=== PATIENT | male | born 1950 | race Caucasian/White ===

== ENCOUNTER 2019-08-20 16:10 | Outpatient (CLI) | payer MEDICARE, SELFPAY ==
[2019-08-20 16:34] LABS: Hematocrit 41.3 % (42.0-52.0); Hemoglobin 13.6 g/dL (14.0-18.0); Mean Corpuscular HGB Conc 32.9 g/dl (32-36); Mean Corpuscular Hemoglobin 30.9 pg (26-34); Mean Corpuscular Volume 93.9 fl (80-100); Mean Platelet Volume 9.3 fl (7.4-10.4); Platelet Count Result 151 k/mm3 (150-375); White Blood Count 6.9 K/mm3 (4.5-10.0)
[2019-08-20 16:49] LABS: Alanine Aminotransferase 29 U/L (4-50); Albumin Level 4.2 g/dL (3.5-5.1); Alkaline Phosphatase 105 U/L (38-126); Aspartate Amino Transferase 38 U/L (17-59); Bilirubin,Total 0.8 mg/dL (0.2-1.3); Blood Urea Nitrogen 37 mg/dL (9-20); Calcium 9.3 mg/dL (8.4-10.2); Carbon Dioxide 25 mmol/L (22-30); Chloride 101 mmol/L (98-107); Estimated Glomerular Filt Rate 50; Glucose 99 mg/dL (75-110); Potassium 4.3 mmol/L (3.4-5.0); Sodium 136 mmol/L (137-145)
== END 2019-08-20 16:11 | disposition home or self-care (01) ==
LOC: ANHLAB 16:12
PROVIDERS: PCP Family Medicine; Visit Provider Physician Assistant
DX: R53.83 Other fatigue (principal); J02.9 Acute pharyngitis, unspecified
CPT/HCPCS: 36415; 80053; 85027

== ENCOUNTER 2020-04-05 23:30 | Inpatient (IN) | payer MEDICARE, SELFPAY ==
--- NOTE | ~2020-04-05 | MR_ITS ---
EXAMINATION: MR brain/brain stem wo/w con DATE: 04/06/2020 10:41 INDICATION: Vertigo. TECHNIQUE: Magnetic resonance imaging (MRI) of the brain and brainstem was performed without and with 20 mL MultiHance intravenous contrast. Sequences included sagittal and axial T1-weighted FSE, axial diffusion-weighted FS EPI, axial T2*-weighted GRE, axial T2-weighted FLAIR Propeller, and axial T2-we ighted Propeller. Postcontrast sequences included axial, sagittal, and coronal T1-weighted FSE. Appar ent diffusion coefficient (ADC) maps were created. COMPARISON: Brain MRI 12/18/2018, head CT 04/06/2020 FINDINGS: There are old infarcts involving the cerebellum bilaterally. There is an old infarct in rig ht occipital lobe. There is an old infarct involving the left basal ganglia and left frontal lobe cor john radiata. There is an old lacunar infarct in the right lentiform nucleus. There are scattered area s of nonspecific increased T2-weighted signal intensity in the cerebral white matter. There is no int racranial hemorrhage, acute infarction, or abnormal intracranial mass lesion. The pituitary is normal in size. There are surgical changes of the sella. There is ex vacuo dilatation of body of left later al ventricle. The orbits are normal. There is mucosal thickening in the paranasal sinuses. IMPRESSION: 1. Old infarcts involving the cerebellum, right occipital lobe, bilateral basal ganglia, and left fro ntal lobe dugan radiata. 2. Moderate nonspecific cerebral white matter disease, which likely represents chronic small vessel i schemic disease. Reviewed, dictated and finalized at location A. IMPRESSION: 1. Old infarcts involving the cerebellum, right occipital lobe, bilateral basal ganglia, and left frontal lobe dugan radiata. 2. Moderate nonspecific cerebral white matter disease, which likely represents chronic small vessel ischemic disease.
--- NOTE | ~2020-04-05 | CT_ITS ---
EXAMINATION: CT brain wo con DATE: 04/06/2020 02:55 INDICATION: Vertigo TECHNIQUE: Computed tomography (CT) of the head was performed without intravenous contrast. The mA wa s adjusted according to patient size. Iterative reconstruction technique was employed. Exam dose: 60 5.33 mGy-cm total exam DLP. COMPARISON: 12/18/2018 MRI brain 12/17/2018 CT brain FINDINGS: Old infarcts of the left cerebellar hemisphere, right occipital lobe and left dugan radiat a. Chronic lacunar infarct in region of anterior limb of right internal capsule. Chronic basal gangli a lacunar infarcts are suggested. Severe atherosclerotic calcification of the vertebral, basilar, internal carotid arteries as well as as middle cerebral artery calcifications. No intracranial hemorrhage or recent cerebrovascular accident is evident. No midline shift or mass ef fect. No subdural or epidural hematoma. There is soft tissue mass involving the sphenoid sinus and sella turcica with associated destruction of the floor of the sella turcica. MRI examination is recommended.. No fracture or bone destruction of the cranial vault is noted otherwise.. IMPRESSION: Soft tissue mass of the sella turcica and sphenoid sinus area, with associated destructi on of the floor of the sella turcica; MRI evaluation is recommended. Extensive cerebral atherosclerotic calcification Chronic infarcts of the left cerebellum, right occipital lobe, left dugan radiata, basal ganglia, an terior limb of right internal capsule Reviewed, dictated and finalized at Location A. Reviewed, dictated and finalized at location A. IMPRESSION: Soft tissue mass of the sella turcica and sphenoid sinus area, wit h associated destruction of the floor of the sella turcica; MRI evaluation is r ecommended. Extensive cerebral atherosclerotic calcification Chronic infarcts of the left cerebellum, right occipital lobe, left dugan radi jacque, basal ganglia, anterior limb of right internal capsule
--- NOTE | ~2020-04-05 | US_ITS ---
EXAMINATION: US carotid duplex BI DATE: 04/08/2020 14:38 INDICATION: Vertigo. Syncope. TECHNIQUE: Grayscale, color Doppler, and pulsed Doppler images of the cervical carotid arteries were obtained. The degree of vessel stenosis is placed in one of the following categories: normal, <50%, 5 0-69%, >=70% but less than near-occlusion, near-occlusion, or total occlusion. Note that percent sten osis relative to normal distal artery lumen diameter is indirectly measured from velocity measurement s as described by Erik, et al. Radiology 2003; 229:340-346. Notes: Normal: Peak systolic velocity <125 centimeters/sec and no plaque <50%. Peak systolic velocity <125 ( EDV <40; ICA/CCA PSV ratio <2.0; used these factors only a tandem lesions or low cardiac output or co ntralateral disease) 50-69 %: PSV 125-230 (EDV 40-100; ratio 2-4) >= 70% but less than near occlusion: PSV greater than 230 (EDV > 100; ratio> 4.0) Near Occlusion: PSV that is variable; markedly narrowed lumen Occlusion: Absent flow on color/spectral Doppler and no lumen on torres scale. COMPARISON: 12/28/2018. FINDINGS: RIGHT: The right common carotid artery (CCA) peak systolic velocity (PSV) is 77 cm/s. The right internal car otid artery (ICA) PSV is 53 cm/s. The right ICA end-diastolic velocity (EDV) is 10 cm/s. The right IC A/CCA PSV ratio is 0.7. The external carotid artery (ECA) PSV is 69 cm/s. There is antegrade flow in the right vertebral artery. LEFT: The left CCA PSV is 59 cm/s. The left ICA PSV is 45 cm/s. The left ICA EDV is 11 cm/s. The left ICA/C CA PSV ratio is 0.8. The ECA PSV is 67 cm/s. There is antegrade flow in the left vertebral artery. IMPRESSION: 1. Less than 50% stenosis in the right internal carotid artery by sonographic criteria. 2. Less than 50% stenosis in the left internal carotid artery by sonographic criteria. Reviewed, dictated and finalized at location A. IMPRESSION: 1. Less than 50% stenosis in the right internal carotid artery by sonographic c tad. 2. Less than 50% stenosis in the left internal carotid artery by sonographic cr toya.
--- NOTE | ~2020-04-05 | XR_ITS ---
XR chest 1V DATE: 04/05/2020 23:59 INDICATION: Bradycardia, sweating, dizziness, nausea and vomiting. History of chronic atrial fibrilla tion, coronary artery disease. TECHNIQUE: AP chest COMPARISON: 06/28/2015 PA and lateral chest FINDINGS: Status post sternotomy. Multiple broken sternal wire sutures. Cardiomegaly. Aortic ectasia, calcification and tortuosity. There is pulmonary vascular redistribution which suggests mild pulmonary venous hypertension. Mild in filtrate or atelectasis at the lung bases. Diffuse osteopenia. IMPRESSION: Cardiomegaly, pulmonary vascular redistribution, suggesting mild congestive changes Mild bibasilar infiltrate and/atelectasis Reviewed, dictated and finalized at location A. IMPRESSION: Cardiomegaly, pulmonary vascular redistribution, suggesting mild co ngestive changes Mild bibasilar infiltrate and/atelectasis
[2020-04-05 23:30] VITALS: BP 221/114; PULSE 53; RESP 21; TEMP 36.4; O2SAT 99
--- NOTE | 2020-04-05 23:40 | ECG_ITS ---
Measurements Intervals [place] Rate: 50 P: -16 OK: 201 QRS: -5 QRSD: 171 T: 55 QT: 537 QTc: 490 Interpretive Statements SINUS BRADYCARDIA BORDERLINE AV CONDUCTION DELAY RIGHT BUNDLE BRANCH BLOCK ABNORMAL ECG Electronically Signed On 04-06-2020 8:02:57 CDT by Dick Carlton D.O.
--- NOTE | 2020-04-05 23:47 | ED.DIZZY ---
HPI - Dizziness General Chief Complaint: Dizziness Stated Complaint: n/v dizziness Time Seen by Provider: 04/05/20 23:37 Source: patient and EMS Limitations: no limitations History of Present Illness HPI Narrative: Patient is 69 years old white male, obese to the up from sitting position and suddenly developed dizziness, everything is spinning, associated with nausea, vomiting, diaphoresis. EMT reported that patient heart rate was in the 40s, atropine and Zofran were given. On arrival to the emergency room patient denying any pain, fever, chills, chest pain, shortness of breath, back pain or abdominal pain. Currently complaining of that everything is pains if he turning his head to either side. Patient had similar symptoms secondary to vertigo Related Data Home Medications Medication Instructions Recorded Confirmed aspirin 81 mg PO DAILY 04/06/20 cabergoline 0.25 mg PO 2XW 04/06/20 calcium citrate malate-vit D3 tablet PO 04/06/20 cholecalciferol (vitamin D3) 50 mcg PO DAILY 04/06/20 [Vitamin D3] ferrous gluconate 236 mg PO DAILY 04/06/20 finasteride 5 mg PO DAILY 04/06/20 lisinopril 10 mg PO DAILY 04/06/20 mecobalamin (vitamin B12) 1,000 mcg SUBLINGUAL DAILY 04/06/20 sertraline 150 mg PO DAILY 04/06/20 Allergies Allergy/AdvReac Type Severity Reaction Status Date / Time No Known Allergies Allergy Verified 04/06/20 00:53 Review of Systems Review of Systems: Narrative: CONSTITUTIONAL: Denies fever, chills, or sweats. EYES: Denies visual changes, redness, or discharge. ENT: Denies rhinorrhea, congestion, sore throat, or otalgia. CARDIOVASCULAR: Denies chest pain, palpitations, or edema. RESPIRATORY: Denies cough or dyspnea. GASTROINTESTINAL: Denies abdominal pain, nausea, vomiting, or diarrhea. GENITOURINARY: Denies dysuria or hematuria. SKIN: Denies rash or itching. MUSCULOSKELETAL: Denies back pain, joint pain, or myalgia. NEUROLOGIC: Denies headache, numbness, or weakness. PSYCHIATRIC: Denies anxiety or depression. [facility] Past Medical History Medical History BPH (benign prostatic hyperplasia) CAD (coronary artery disease) Chronic a-fib CKD (chronic kidney disease) Depression History of [place] (myocardial infarction) History of pituitary adenoma HLD (hyperlipidemia) HTN (hypertension) JULIANA (obstructive sleep apnea) Osteoarthritis SSS (sick sinus syndrome) Type 2 diabetes mellitus with proliferative diabetic retinopathy without macular edema, bilateral Surgical History Surgical History History of coronary artery bypass graft Family History Family History Other Family history of congenital heart disease Social History Social History Smoking status: Never smoker Alcohol intake: never Substance use: never Gender identity (if verbalized by the patient): Male Exam Narrative: Exam Narrative: General appearance: Well-developed, well-nourished Skin: Pale skin Head: Normocephalic, nontraumatic Eyes: Clear conjunctiva ENT: Oropharynx normal, ears normal, nose normal Neck: Supple, nontender Chest and respiratory: Airway patent, no respiratory distress, no accessory muscle use Heart: Bradycardia, regular rate Abdomen: Soft, nontender, no organomegaly, quiet bowel sounds Vascular: Normal peripheral pulses, normal capillary refill. Musculoskeletal: Normal range of motion, nontender back Neurologic: Alert and oriented ?3, MACHINE DESIGNER is normal as tested, no gross motor deficit Course Course Emergency Course: Improvin
--- NOTE | 2020-04-05 23:49 | PC.NURSE ---
Patient being taken to radiology.
[2020-04-05 23:57] LABS: Basophils Absolute Auto 0.1 K/mm3 (0.0-0.1); Basophils Percent Auto 0.9 % (0.2-1.2); Eosinophils Absolute Auto 0.3 K/mm3 (0-0.3); Eosinophils Percent Auto 4.4 % (0-4.4); Hemoglobin 13.4 g/dL (14.0-18.0); Immature Granulocyte Absolute 0.01 K/mm3 (0.00-0.031); Immature Granulocyte Percent A 0.1 % (0-0.5); Lymphocytes Absolute Auto 2.99 K/mm3 (0.9-3.2); Lymphocytes Percent Auto 42.8 % (18.3-44.2); Mean Corpuscular HGB Conc 33.5 g/dl (32-36); Mean Corpuscular Hemoglobin 30.7 pg (26-34); Mean Corpuscular Volume 91.5 fl (80-100); Mean Platelet Volume 9.3 fl (7.4-10.4); Monocytes Absolute Auto 0.5 K/mm3 (0.1-0.6); Monocytes Percent Auto 6.4 % (2.6-8.5); Neutrophils Absolute Auto 3.2 K/mm3 (1.3-6.7); Neutrophils Percent Auto 45.4 % (45.5-73.1); Platelet Count Result 174 k/mm3 (150-375); Red Blood Count 4.37 M/mm3 (4.6-6.20); Red Cell Distribution Width 13.1 % (11.5-14.5)
[2020-04-05] MEDS: ONDANSETRON INJ 4 MG/2 ML VIAL IV PUSH (23:59)
[2020-04-05] MEDS: diazePAM INJ (*CRX) 10 MG/2 ML SYRINGE 5 MG IV PUSH (23:59)
[2020-04-05] MEDS: MECLIZINE HCL 25 MG TABLET PO (23:59)
[2020-04-06] VITALS (14 sets, daily range): BP systolic 115–201; BP diastolic 78–112; PULSE 43–54; RESP 12–20; TEMP 36.1–37; O2SAT 91–99; BMI 44.6
[2020-04-06 00:07] LABS: INR 1.1; Prothrombin Time 13.8 Seconds (11.1-14.7)
[2020-04-06 00:08] LABS: Partial Thromboplastin Time 27.1 SECONDS (22.3-36.8)
--- NOTE | 2020-04-06 00:10 | PC.NURSE ---
Patient oxygen sat decreased to 80% after given the IV valuim. Patient still awake but drowsy. Patient placed on 3L of oxygen via NC. ERP notifed. Patient stating he feels much better but sleepy.
[2020-04-06 00:11] LABS: Alanine Aminotransferase 23 U/L (4-50); Albumin Level 4.4 g/dL (3.5-5.1); Alkaline Phosphatase 100 U/L (38-126); Anion Gap 7 mmol/L (8-16); Aspartate Amino Transferase 29 U/L (17-59); Bilirubin,Total 0.4 mg/dL (0.2-1.3); Blood Urea Nitrogen 25 mg/dL (9-20); Calcium 9.5 mg/dL (8.4-10.2); Carbon Dioxide 26 mmol/L (22-30); Chloride 103 mmol/L (98-107); Estimated CRCL calculation 80 ml/min; Estimated Glomerular Filt Rate > 60; Glucose 124 mg/dL (75-110); Potassium 3.7 mmol/L (3.4-5.0); Sodium 136 mmol/L (137-145)
[2020-04-06 00:21] LABS: Troponin I < 0.012 ng/mL (0.000-0.034)
--- NOTE | 2020-04-06 00:49 | PC.NURSE ---
Patient decreased from 3L to 1L via NC. Patient maintaining O2 sat of 97%-100%. Patient's in room at bedside.
[2020-04-06] MEDS: cloNIDine HCL 0.1 MG TABLET PO ×2 (01:35→02:03)
--- NOTE | 2020-04-06 01:39 | PC.NURSE ---
Patient taken off oxygen. Patient maintaining sat at 97% on RA.
--- NOTE | 2020-04-06 02:16 | PC.NURSE ---
Patient attempted ambulation assessment, patient stated he was not dizzy upon sitting on the side of the bed or standing. Patient became dizzy when taking a step. Patient assisted back onto stretcher. Patient did not tolerate ambulation well, ERP notified.
--- NOTE | 2020-04-06 03:48 | ADMGEN ---
This patient, Kieran Phelan, was admitted to Medical Room 348-01. Patient/family oriented to hospital policies and general routines including ID bracelet, bed and alarms, visiting hours, pain management, procedures, bathroom and other care routines, personal items, smoking policy, room service/diet, and visiting hours. Valuables list has been completed. Information on how to activate the Rapid Response Team has been discussed. Patient/Family are encouraged to report perceived risks to care and to ask questions if they do not understand what they are told or what they should do.
[2020-04-06 03:52] LABS: Glucose Point of Care 120 (65-105)
[2020-04-06 03:58] LABS: Troponin I < 0.012 ng/mL (0.000-0.034)
[2020-04-06 05:58] LABS: Troponin I < 0.012 ng/mL (0.000-0.034)
[2020-04-06 08:13] LABS: Glucose Point of Care 105 (65-105)
[2020-04-06] MEDS: lisinopriL 10 MG TABLET PO (10:54)
[2020-04-06] MEDS: CLOPIDOGREL BISULFATE 75 MG TABLET PO (10:55)
[2020-04-06] MEDS: ISOSORBIDE MONONITRATE 30 MG TAB.ER.24H PO (10:55)
[2020-04-06] MEDS: ATORVASTATIN 40 MG TABLET PO (10:56)
[2020-04-06] MEDS: BUMETANIDE 0.5 MG TABLET 0.25 MG PO (10:56)
[2020-04-06] MEDS: FERROUS GLUCONATE 324 MG TABLET PO (10:57)
[2020-04-06] MEDS: FINASTERIDE 5 MG TABLET PO (10:57)
[2020-04-06] MEDS: ASPIRIN 81 MG ENTERIC TABLET PO (10:58)
[2020-04-06] MEDS: SERTRALINE HCL 50 MG TABLET 150 MG PO (10:58)
[2020-04-06] MEDS: TAMSULOSIN HCL 0.4 MG CAPSULE PO (10:58)
[2020-04-06] MEDS: CHOLECALCIFEROL 1,000 UNITS TABLET 2000 UNITS PO (10:59)
[2020-04-06] MEDS: CYANOCOBALAMIN 1,000 MCG TABLET 1000 MCG PO (10:59)
[2020-04-06 11:48] LABS: Glucose Point of Care 145 (65-105)
--- NOTE | 2020-04-06 13:30 | PM.IMHP ---
H&P: HPI History of Present Illness Date/Time: 04/06/20 13:30 with past medical history 9) History of pituitary adenoma, acromegaly, pituitary gigantism, gigantism, type 2 diabetes, coronary artery disease, patient was brought to the emergency department by EMS with complaint of nausea or vomiting and dizziness his heart rate was in 40s and patient was given atropine and Zofran which did help, patient was also given atropine in the emergency depart to bring is heart rate up and this also helps improve his nausea or vomiting and dizziness, also upon arrival patient blood pressure was extremely elevated 211/114 and patient was given clonidine which did help with blood pressure, Patient is seen by his speech language pathologist assistant and concerned about bradycardia and suspec conduction system disease with wide right bundle-branch block and first-degree AV block. to further evaluate patient will have cardiac echo, as instructed by speech language pathologist assistant will avoid AV node blocking agents including clonidine, patient has significant endocrinology abnormality with acromegaly and pituitary gigantism for which patient is seen by process coordinator however he not the process coordinator in over 6 months and has not taken his medications because Medicaid does not pay for the medications, currently patient heart rate is is low 50 clinically stable denies any complaint of chest pain shortness of breath dizziness nausea or vomiting, patient has been seen by Cardiology will consult further recommendation. Chief complaint: Vertigo, uncontrolled hypertension Narrative: Kieran Phelan is a 69 year old male Review of Systems Review of Systems: All systems reviewed & are unremarkable except as noted in HPI and below PMFSH Past Medical History Medical History BPH (benign prostatic hyperplasia) CAD (coronary artery disease) Chronic a-fib CKD (chronic kidney disease) Depression History of [place] (myocardial infarction) History of pituitary adenoma HLD (hyperlipidemia) HTN (hypertension) JULIANA (obstructive sleep apnea) Osteoarthritis SSS (sick sinus syndrome) Type 2 diabetes mellitus with proliferative diabetic retinopathy without macular edema, bilateral Surgical History Surgical History History of coronary artery bypass graft Family History Family History Other Family history of congenital heart disease Social History Social History Smoking status: Never smoker Alcohol intake: never Substance use: never Gender identity (if verbalized by the patient): Male Spiritual care concerns: No Meds Home Medications and Allergies Home Medications Medication Instructions Recorded Confirmed Type atorvastatin 40 mg tablet 40 mg PO DAILY #90 tablet 07/18/19 04/06/20 Rx bumetanide 0.5 mg tablet 0.25 mg PO DAILY #45 tablet 08/28/19 04/06/20 Rx tamsulosin 0.4 mg capsule 0.4 mg PO DAILY #90 cap 09/25/19 04/06/20 Rx potassium chloride 20 mEq 40 meq PO DAILY #180 tablet 10/01/19 04/06/20 Rx tablet,extended release clopidogrel 75 mg tablet 75 mg PO DAILY #90 tablet 02/29/20 04/06/20 Rx isosorbide mononitrate 30 mg 30 mg PO DAILY #90 tablet 02/29/20 04/06/20 Rx tablet,extended release 24 hr aspirin 81 mg PO DAILY 04/06/20 04/06/20 History cabergoline 0.25 mg PO 2XW 04/06/20 04/06/20 History calcium citrate malate-vit D3 4 tablet PO DAILY 04/06/20 04/06/20 History cholecalciferol (vitamin D3) 50 mcg PO DAILY 04/06/20 04/06/20 History [Vitamin D3] ferrous gluconate 236 mg PO DAILY 04/06/20 04/06/20 History finasteride 5 mg PO DAILY 04/06/20 04/06/20 History lisinopril 10 mg PO DAILY 04/06/20 04/06/20 History mecobalamin (vitamin B12) 1,000 mcg SUBLINGUAL DAILY 04/06/20 04/06/20 History sertraline 150 mg PO DAILY 04/06/20 04/06/20 History Allergies Allergy/AdvR
--- NOTE | 2020-04-06 13:56 | PM.CNCAR ---
Assessment and Plan Assessment and plan (1) Sinus bradycardia: Code(s): R00.1 - Bradycardia, unspecified Status: Acute Assessment and Plan: stable sinus bradycardia heart rate ranging 40s to 50s. Underlying right bundle-branch block. Bradycardia is more pronounced in previously noted but not entirely new. No evidence of prolonged pauses and or high-grade AV block. Right bundle branch block is chronic. Patient does not have a known history of atrial fibrillation as documented elsewhere. Mild bradycardia may be contributing to his symptom complex I believe it is is more likely a consequence of his clinical status / presentation as opposed to the primary explanation. It would not be explanation for marked hypertension. His bradycardia may be a function of excessive vagal tone and/or intracerebral process/mass. MRI pending. Continue telemetry. Avoid AV henna blocking agents including clonidine. While I do not believe patient meets criteria for pacemaker implantation I cannot entirely exclude this is a possibility depending upon results of his ongoing workup. Nonetheless, clearly has underlying conduction system disease with wide right bundle-branch block and first-degree AV block. (2) Hypertension, uncontrolled: Code(s): I10 - Essential (primary) hypertension Status: Acute Assessment and Plan: severely elevated to 21/114 at presentation now much improved. Patient feels much better but still somewhat dizzy despite persistent moderate bradycardia. My primary concern is with inter cerebral contribution from tumor/mass, then uncontrolled hypertension complicated by bradycardia. Continue medical management. Avoid Hypotension. (3) Dizziness: Code(s): R42 - Dizziness and giddiness Status: Acute Assessment and Plan: Improved but not completely resolved with reduction of blood pressure. Bradycardia may be contributing but I am more concerned with regarding CT head results and pending MRI brain. (4) CAD (coronary artery disease): Code(s): I25.10 - Atherosclerotic heart disease of zuni coronary artery without angina pectoris Status: Acute Assessment and Plan: stable, no acute issue. Continue antiplatelet therapy. If he remains on dual antiplatelet therapy given his complicated anatomy. no anginal symptoms reported. Enzymes negative thus far. (5) Acromegaly and gigantism: Code(s): E22.0 - Acromegaly and pituitary gigantism Status: Acute Assessment and Plan: As above. Defer to primary service. Neurology consultation. (6) History of pituitary adenoma: Code(s): Z86.018 - Personal history of other benign neoplasm Status: Acute Assessment and Plan: As above. (7) JULIANA (obstructive sleep apnea): Code(s): G47.33 - Obstructive sleep apnea (adult) (pediatric) Status: Acute Assessment and Plan: patient reports compliance with BiPAP at home. He will require this in the hospital. 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 History of Present Illness History of Present Illness Consult date/time: Date of service: 04/06/20 13:56 this is a cardiology consultation at the [facility] Dr. [facility] dizziness and bradycardia. Requesting physician: Ernst Short MD Consult reason: Other ( Bradycardia, vertigo) Reason For Visit: Vertigo, uncontrolled hypertension Narrative: Mr. Phelan is a very pleasant 69-year-old gentleman well known to me whom I follow as an outpatient with past medical history significant for acromegaly, obstructive sleep apnea on CPAP, CABG 2004 with known occlusion of 2 saphenous vein
[2020-04-06 16:40] LABS: Glucose Point of Care 78 (65-105)
[2020-04-06] MEDS: ACETAMINOPHEN 500 MG TABLET 1000 MG PO (18:27)
[2020-04-06 22:17] LABS: Glucose Point of Care 97 (65-105)
[2020-04-07] VITALS (11 sets, daily range): BP systolic 131–210; BP diastolic 75–98; PULSE 43–62; RESP 14–20; TEMP 35.6–36.8; O2SAT 97–98
--- NOTE | 2020-04-07 | ECHO_ITS ---
Patient Info Name: Kieran Phelan Age: 69 years : 1950 Gender: Male Ht: 67 in Wt: 285 lbs BSA: 2.54 m2 BP: 165 / 80 mmHg Heart Rhythm: Sinus Rhythm Technical Quality: Poor Exam Date: 04/07/2020 1:42 PM Exam Location: [facility] Patient Status: Inpatient Admit Date: 04/07/2020 Staff Ordering Physician: Ernst Short MD Crimper Operator: Adriana Prince RDCS Attending Provider: Cristy Gruber DO Exam Type: CA echo dop color flow w con Study Info Indications R00.1 - Bradycardia, unspecified Complete two-dimensional, color flow and Doppler transthoracic echocardiogram is performed with contrast to opacify the left ventricle and to improve the deliniation of the left ventricle endocardial borders. Contrast/Agitated Saline Contrast/Ag. Saline: Definity Amount: 1.00 ml Administered By: Navjot Amato RN Existing IV Access: Yes IV Access Condition: patent with no signs of infiltration Reason for Poor Study: patient body habitus Summary 1. Left ventricular systolic function is normal, estimated at 65-70%. 2. There is moderate concentric increased left ventricular wall thickness. 3. Definity contrast injected to enhance visualization. 4. Left atrial chamber dimension is mildly enlarged. 5. There is mild aortic valve sclerosis. 6. Compared to examination 2019 the inferior basal segment seems to contract normally at this time. Left Ventricle Left ventricular chamber dimension is normal. Left ventricular systolic function is normal, estimated at 65-70%. There is moderate concentric increased left ventricular wall thickness. The left ventricular diastolic function is grade I diastolic dysfunction. Definity contrast injected to enhance visualization. Right Ventricle Right ventricular chamber dimension is normal. Left Atria Left atrial chamber dimension is mildly enlarged. Right Atria Right atrial chamber dimension is normal. Aortic Valve The aortic valve is trileaflet. There is mild aortic valve sclerosis. Pulmonic Valve The pulmonic valve is not well visualized. Mitral Valve The mitral valve has normal leaflets. The mitral valve annulus is mildly calcified. Tricuspid Valve The tricuspid valve leaflets are normal. Pericardium/Pleural The pericardium appears normal. Aorta The aortic root size at the sinus of Valsalva is normal. Left Ventricular Outflow Tract Name Value Normal LVOT 2D LVOT Diameter 1.99 cm LVOT Doppler LVOT Peak Gradient 5 mmHg LVOT Mean Gradient 3 mmHg LVOT VTI 29.85 cm LVOT VTI/AV VTI Ratio 1.06 LVOT Stroke Volume 92.36 ml LVOT CO 5.41 l/min LVOT CI 2.13 L/min/m2 Pulmonic Valve Name Value Normal RVOT Doppler ---
[2020-04-07 05:47] LABS: Anion Gap 6 mmol/L (8-16); Blood Urea Nitrogen 24 mg/dL (9-20); Calcium 9.4 mg/dL (8.4-10.2); Carbon Dioxide 28 mmol/L (22-30); Chloride 103 mmol/L (98-107); Estimated CRCL calculation 80 ml/min; Estimated Glomerular Filt Rate > 60; Glucose 96 mg/dL (75-110); Potassium 4.1 mmol/L (3.4-5.0); Sodium 137 mmol/L (137-145)
[2020-04-07] MEDS: hydrALAZINE HCL 20 MG/ML VIAL 10 MG IV PUSH (06:36)
[2020-04-07] MEDS: CHOLECALCIFEROL 1,000 UNITS TABLET 2000 UNITS PO (08:08)
[2020-04-07] MEDS: ASPIRIN 81 MG ENTERIC TABLET PO (08:08)
[2020-04-07] MEDS: BUMETANIDE 0.5 MG TABLET 0.25 MG PO (08:08)
[2020-04-07] MEDS: ATORVASTATIN 40 MG TABLET PO (08:08)
[2020-04-07] MEDS: ISOSORBIDE MONONITRATE 30 MG TAB.ER.24H PO (08:09)
[2020-04-07] MEDS: SERTRALINE HCL 50 MG TABLET 150 MG PO (08:09)
[2020-04-07] MEDS: CLOPIDOGREL BISULFATE 75 MG TABLET PO (08:09)
[2020-04-07] MEDS: lisinopriL 10 MG TABLET PO ×2 (08:09→20:22)
[2020-04-07] MEDS: TAMSULOSIN HCL 0.4 MG CAPSULE PO (08:09)
[2020-04-07] MEDS: CYANOCOBALAMIN 1,000 MCG TABLET 1000 MCG PO (08:09)
[2020-04-07] MEDS: FERROUS GLUCONATE 324 MG TABLET PO (08:09)
[2020-04-07] MEDS: FINASTERIDE 5 MG TABLET PO (08:09)
[2020-04-07] MEDS: ACETAMINOPHEN 500 MG TABLET 1000 MG PO (09:40)
--- NOTE | 2020-04-07 11:22 | PM.PNCARD ---
Progress Note: A&P Assessment and Plan (1) Sinus bradycardia: Code(s): R00.1 - Bradycardia, unspecified Status: Acute Assessment and Plan: stable sinus bradycardia heart rate ranging 40s to 50s. Underlying right bundle-branch block. Bradycardia is more pronounced in previously noted but not entirely new. No evidence of prolonged pauses and or high-grade AV block. Right bundle branch block is chronic. Patient does not have a known history of atrial fibrillation as documented elsewhere. I do not think his bradycardia is contributing significantly to his dizziness Continue telemetry. Avoid AV henna blocking agents including clonidine. While I do not believe patient meets criteria for pacemaker implantation I cannot entirely exclude this is a possibility depending upon results of his ongoing workup. Nonetheless, clearly has underlying conduction system disease with wide right bundle-branch block and first-degree AV block. (2) Hypertension, uncontrolled: Code(s): I10 - Essential (primary) hypertension Status: Acute Assessment and Plan: severely elevated to 21/114 at presentation now much improved. Patient feels much better but still somewhat dizzy despite persistent moderate bradycardia. My primary concern is with inter cerebral contribution from tumor/mass, will increase his lisinopril to 10 mg p.o. b.i.d. (3) Dizziness: Code(s): R42 - Dizziness and giddiness Status: Acute Assessment and Plan: Improved but not completely resolved with reduction of blood pressure. Bradycardia may be contributing but I am more concerned with regarding CT head results and pending MRI brain. (4) CAD (coronary artery disease): Code(s): I25.10 - Atherosclerotic heart disease of [place] coronary artery without angina pectoris Status: Acute Assessment and Plan: stable, no acute issue. Continue antiplatelet therapy. If he remains on dual antiplatelet therapy given his complicated anatomy. no anginal symptoms reported. Enzymes negative thus far. (5) Acromegaly and gigantism: Code(s): E22.0 - Acromegaly and pituitary gigantism Status: Acute Assessment and Plan: As above. Defer to primary service. Neurology consultation. (6) History of pituitary adenoma: Code(s): Z86.018 - Personal history of other benign neoplasm Status: Acute Assessment and Plan: As above. (7) JULIANA (obstructive sleep apnea): Code(s): G47.33 - Obstructive sleep apnea (adult) (pediatric) Status: Acute Assessment and Plan: patient reports compliance with BiPAP at home. He will require this in the hospital. 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 Subjective Date/time seen: 04/07/20 11:22 Interval history: 69-year-old with dizziness and low heart rate Date of service 04/07/2020: Heart rate is normal. Dizziness has essentially resolved. I do not think that his heart rate has anything to do with his dizziness. Still has high blood pressure. No chest pain or shortness of breath Review of Systems Review of Systems: All systems reviewed & are unremarkable except as noted in HPI and below Constitutional: Constitutional: Reports as per HPI, Reports no additional constitutional complaints, Denies chills and Reports fatigue Eyes: Eyes: Reports as per HPI and Reports no additional eye complaints ENT: Reports system reviewed and no additional complaints, except as documented, Reports as per HPI, Denies Normal hearing present, Denies epistaxis, Denies nasal congestion and Denies tinnitus Cardiovascular: Cardiovascular: Reports as per HPI, Reports no additional cardiovascular complaints, Denies
[2020-04-07] MEDS: PERFLUTREN LIPID MICROSPHERES 1.5 ML VIAL DILUTED TO 10 ML TOTAL VOLUME IV PUSH (14:19)
--- NOTE | 2020-04-07 18:31 | PM.IMPN ---
Progress Note: A&P Assessment and Plan (1) Acromegaly and gigantism: Code(s): E22.0 - Acromegaly and pituitary gigantism Status: Acute Assessment and Plan: 04/07/20 18:31 with past medical history 9) History of pituitary adenoma, acromegaly, pituitary gigantism, gigantism, type 2 diabetes, coronary artery disease, patient was brought to the emergency department by EMS with complaint of nausea or vomiting and dizziness his heart rate was in 40s and patient was given atropine and Zofran which did help, patient was also given atropine in the emergency depart to bring is heart rate up and this also helps improve his nausea or vomiting and dizziness, also upon arrival patient blood pressure was extremely elevated 211/114 and patient was given clonidine which did help with blood pressure, Patient is seen by his landscape artist and concerned about bradycardia and suspec conduction system disease with wide right bundle-branch block and first-degree AV block. to further evaluate patient will have cardiac echo, as instructed by landscape artist will avoid AV node blocking agents including clonidine, patient has significant endocrinology abnormality with acromegaly and pituitary gigantism for which patient is seen by slide fasteners inspector however he not the slide fasteners inspector in over 6 months and has not taken his medications because Medicaid does not pay for the medications, currently patient heart rate is is low 50 clinically stable denies any complaint of chest pain shortness of breath dizziness nausea or vomiting, patient has been seen by Cardiology will consult further recommendation. today patient was seen by cardioloigst and he remains clinically stable, denies any CP, or dizziness, denies any abdominla pain or nuasea, patient had cardiac echo which was essentially normal, will monitor patient overnight and reassess tomorrow, patient does need to follow-up with his slide fasteners inspector at the [facility] meanwhile will consult neurologist for further recommendation. (2) Hypertension, uncontrolled: Code(s): I10 - Essential (primary) hypertension Status: Acute Assessment and Plan: patient with extremely elevated blood pressure in the emergency department patient was given clonidine which has improved his blood pressure will continue home regimen and monitor. (3) Vertigo: Code(s): R42 - Dizziness and giddiness Status: Acute Assessment and Plan: patient with History of pituitary adenoma, acromegaly pending MRI result patient may benefit going to [facility] further evaluation (4) Chronic a-fib: Code(s): I48.20 - Chronic atrial fibrillation, unspecified Status: Acute Assessment and Plan: currently rate is controlled and stable (5) Type 2 diabetes mellitus with proliferative diabetic retinopathy without macular edema, bilateral: Code(s): E11.3593 - Type 2 diabetes mellitus with proliferative diabetic retinopathy without macular edema, bilateral Status: Acute Assessment and Plan: will resume home medication and monitor. Subjective Date/time seen: 04/07/20 18:31 with past medical history 9) History of pituitary adenoma, acromegaly, pituitary gigantism, gigantism, type 2 diabetes, coronary artery disease, patient was brought to the emergency department by EMS with complaint of nausea or vomiting and dizziness his heart rate was in 40s and patient was given atropine and Zofran which did help, patient was also given atropine in the emergency depart to bring is heart rate up and this also helps improve his nausea or vomiting and dizziness, also upon arrival patient blood pressure was extremely elevated 211/114 and patient was given clonidine which did help with blood pressure, Patient is seen by his landscape artist and concerned about bradycardia and suspec conduction system disease with wide right bundle-branch block and first-degree AV block. to further evaluate patient renato
[2020-04-08] VITALS (8 sets, daily range): BP systolic 126–156; BP diastolic 76–87; PULSE 51–87; RESP 16; TEMP 36.3–37.1; O2SAT 94–98
[2020-04-08 05:40] LABS: Anion Gap 4 mmol/L (8-16); Blood Urea Nitrogen 23 mg/dL (9-20); Calcium 9.8 mg/dL (8.4-10.2); Carbon Dioxide 29 mmol/L (22-30); Chloride 103 mmol/L (98-107); Estimated CRCL calculation 80 ml/min; Estimated Glomerular Filt Rate > 60; Glucose 89 mg/dL (75-110); Potassium 3.7 mmol/L (3.4-5.0); Sodium 136 mmol/L (137-145)
[2020-04-08] MEDS: POTASSIUM CHLORIDE 20 MEQ TABLET 40 MEQ PO (09:07)
[2020-04-08] MEDS: CHOLECALCIFEROL 1,000 UNITS TABLET 2000 UNITS PO (09:08)
[2020-04-08] MEDS: SERTRALINE HCL 50 MG TABLET 150 MG PO (09:08)
[2020-04-08] MEDS: CLOPIDOGREL BISULFATE 75 MG TABLET PO (09:08)
[2020-04-08] MEDS: ISOSORBIDE MONONITRATE 30 MG TAB.ER.24H PO (09:09)
[2020-04-08] MEDS: CYANOCOBALAMIN 1,000 MCG TABLET 1000 MCG PO (09:09)
[2020-04-08] MEDS: ASPIRIN 81 MG ENTERIC TABLET PO (09:09)
[2020-04-08] MEDS: TAMSULOSIN HCL 0.4 MG CAPSULE PO (09:09)
[2020-04-08] MEDS: FINASTERIDE 5 MG TABLET PO (09:10)
[2020-04-08] MEDS: lisinopriL 10 MG TABLET PO (09:11)
[2020-04-08] MEDS: BUMETANIDE 0.5 MG TABLET 0.25 MG PO (09:12)
[2020-04-08] MEDS: FERROUS GLUCONATE 324 MG TABLET PO (09:27)
--- NOTE | 2020-04-08 09:43 | PM.PNCARD ---
Progress Note: A&P Assessment and Plan (1) Sinus bradycardia: Code(s): R00.1 - Bradycardia, unspecified Status: Acute Assessment and Plan: stable sinus bradycardia heart rate ranging 40s to 50s. Underlying right bundle-branch block. Bradycardia is more pronounced in previously noted but not entirely new. No evidence of prolonged pauses and or high-grade AV block. Right bundle branch block is chronic. Patient does not have a known history of atrial fibrillation as documented elsewhere. I do not think his bradycardia is contributing significantly to his dizziness Continue telemetry. Avoid AV henna blocking agents including clonidine. While I do not believe patient meets criteria for pacemaker implantation I cannot entirely exclude this is a possibility depending upon results of his ongoing workup. Nonetheless, clearly has underlying conduction system disease with wide right bundle-branch block and first-degree AV block. (2) Hypertension, uncontrolled: Code(s): I10 - Essential (primary) hypertension Status: Acute Assessment and Plan: severely elevated to 21/114 at presentation now much improved. Patient feels much better but still somewhat dizzy despite persistent moderate bradycardia. My primary concern is with inter cerebral contribution from tumor/mass, (3) Dizziness: Code(s): R42 - Dizziness and giddiness Status: Acute Assessment and Plan: Improved but not completely resolved with reduction of blood pressure. Bradycardia may be contributing but I am more concerned with regarding CT head results and pending MRI brain. Will replace his potassium 40 mEq p.o. x1 (4) CAD (coronary artery disease): Code(s): I25.10 - Atherosclerotic heart disease of [place] coronary artery without angina pectoris Status: Acute Assessment and Plan: stable, no acute issue. Continue antiplatelet therapy. If he remains on dual antiplatelet therapy given his complicated anatomy. no anginal symptoms reported. Enzymes negative thus far. (5) Acromegaly and gigantism: Code(s): E22.0 - Acromegaly and pituitary gigantism Status: Acute Assessment and Plan: As above. Defer to primary service. Neurology consultation. (6) History of pituitary adenoma: Code(s): Z86.018 - Personal history of other benign neoplasm Status: Acute Assessment and Plan: As above. (7) JULIANA (obstructive sleep apnea): Code(s): G47.33 - Obstructive sleep apnea (adult) (pediatric) Status: Acute Assessment and Plan: patient reports compliance with BiPAP at home. He will require this in the hospital. 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 Subjective Date/time seen: 04/08/20 09:43 Interval history: 69-year-old with dizziness and low heart rate Date of service 04/08/2020: Heart rate is normal. Dizziness has resolved . I do not think that his heart rate has anything to do with his dizziness. Still has high blood pressure. No chest pain or shortness of breath Review of Systems Review of Systems: All systems reviewed & are unremarkable except as noted in HPI and below Constitutional: Constitutional: Reports as per HPI, Reports no additional constitutional complaints, Denies chills and Reports fatigue Eyes: Eyes: Reports as per HPI and Reports no additional eye complaints ENT: Reports system reviewed and no additional complaints, except as documented, Reports as per HPI, Denies Normal hearing present, Denies epistaxis, Denies nasal congestion and Denies tinnitus Cardiovascular: Cardiovascular: Reports as per HPI, Reports no additional cardiovascular complaints, Denies chest pain, Report
[2020-04-08] MEDS: ATORVASTATIN 40 MG TABLET PO (10:22)
--- NOTE | 2020-04-08 13:53 | WPDNEURCNPN ---
Assessment and Plan Assessment and plan (1) Sinus bradycardia: Code(s): R00.1 - Bradycardia, unspecified Status: Acute (2) Dizziness: Code(s): R42 - Dizziness and giddiness Status: Acute (3) Hypertension, uncontrolled: Code(s): I10 - Essential (primary) hypertension Status: Acute (4) Vertigo: Code(s): R42 - Dizziness and giddiness Status: Acute (5) Acromegaly and gigantism: Code(s): E22.0 - Acromegaly and pituitary gigantism Status: Acute (6) Fatigue: Code(s): R53.83 - Other fatigue Status: Acute (7) JULIANA (obstructive sleep apnea): Code(s): G47.33 - Obstructive sleep apnea (adult) (pediatric) Status: Acute (8) History of pituitary adenoma: Code(s): Z86.018 - Personal history of other benign neoplasm Status: Acute (9) CAD (coronary artery disease): Code(s): I25.10 - Atherosclerotic heart disease of [place] coronary artery without angina pectoris Status: Acute (10) CKD (chronic kidney disease): Code(s): N18.9 - Chronic kidney disease, unspecified Status: Acute (11) HLD (hyperlipidemia): Code(s): E78.5 - Hyperlipidemia, unspecified Status: Acute (12) HTN (hypertension): Code(s): I10 - Essential (primary) hypertension Status: Acute (13) BPH (benign prostatic hyperplasia): Code(s): N40.0 - Benign prostatic hyperplasia without lower urinary tract symptoms Status: Acute (14) Type 2 diabetes mellitus with proliferative diabetic retinopathy without macular edema, bilateral: Code(s): E11.3593 - Type 2 diabetes mellitus with proliferative diabetic retinopathy without macular edema, bilateral Status: Acute (15) Lumbar spondylosis: Code(s): M47.816 - Spondylosis without myelopathy or radiculopathy, lumbar region Status: Acute (16) Osteoarthritis of spine with radiculopathy, lumbar region: Code(s): M47.26 - Other spondylosis with radiculopathy, lumbar region Status: Acute Additional Plan I discussed with him the etiology of his which sounds like a near syncope without any loss of consciousness and the different possibilities according to his statement he was doing fairly decent when he was taking the medication from the punch out crew member which he was not able to and had stopped it he also tells me that he had not told his punch out crew member about these spells he has had and I strongly suggest to him that he should call him today or tomorrow discussed with the case with him I think it will be appropriate to see his previous MRI and if his punch out crew member feels that I need to follow him as a neurologist I will be happy to however on the previous MRI will be helpful to see in the light of the old strokes seen in over MRI all the other hand there is no trouble seen at the pituitary level but there is evidence of surgery around the [place] level For completeness ex at have asked for a carotid Doppler study and if that is negative the patient can be discharged with the anti-platelet therapy and follow-up with the punch out crew member and if need be I will be more than happy to I also instructed him about the driving and should be extraordinary careful if he thinks that the spell is going to happen however does have never happened while he has been driving Consult date: 04/08/20 Time Seen: 12:45 HPI: Kieran Phelan is a 69 year old male Who is left-handed and was admitted because of what he describes near passing out spell which has not resulted in the complete loss of his consciousness 1 of them happened while he was in the charge will little nausea queasy feeling in his stomach and almost near passing out however never did lose consciousness there was no tongue biting there was no urinary incontinence and he was essentially back to his usual self he was admitted with diagnosis of vertigo with a history of having had pituitary surgery for acromegaly and pituitary
--- NOTE | 2020-04-08 16:22 | PM.DS ---
DS: Admitting Diagnosis Admitting Diagnosis Admitting Diagnosis: Vertigo, uncontrolled hypertension DS: Discharge Diagnosis Discharge Diagnosis (1) Acromegaly and gigantism: Code(s): E22.0 - Acromegaly and pituitary gigantism Status: Acute Assessment and Plan: 04/07/20 18:31 with past medical history 9) History of pituitary adenoma, acromegaly, pituitary gigantism, gigantism, type 2 diabetes, coronary artery disease, patient was brought to the emergency department by EMS with complaint of nausea or vomiting and dizziness his heart rate was in 40s and patient was given atropine and Zofran which did help, patient was also given atropine in the emergency depart to bring is heart rate up and this also helps improve his nausea or vomiting and dizziness, also upon arrival patient blood pressure was extremely elevated 211/114 and patient was given clonidine which did help with blood pressure, Patient is seen by his travel services professional and concerned about bradycardia and suspec conduction system disease with wide right bundle-branch block and first-degree AV block. to further evaluate patient will have cardiac echo, as instructed by travel services professional will avoid AV node blocking agents including clonidine, patient has significant endocrinology abnormality with acromegaly and pituitary gigantism for which patient is seen by paramedical aide however he not the paramedical aide in over 6 months and has not taken his medications because Medicaid does not pay for the medications, currently patient heart rate is is low 50 clinically stable denies any complaint of chest pain shortness of breath dizziness nausea or vomiting, patient has been seen by Cardiology will consult further recommendation. today patient was seen by cardioloigst and he remains clinically stable, denies any CP, or dizziness, denies any abdominla pain or nuasea, patient had cardiac echo which was essentially normal, will monitor patient overnight and reassess tomorrow, patient does need to follow-up with his paramedical aide at the [facility] meanwhile will consult neurologist for further recommendation. (2) Hypertension, uncontrolled: Code(s): I10 - Essential (primary) hypertension Status: Acute Assessment and Plan: patient with extremely elevated blood pressure in the emergency department patient was given clonidine which has improved his blood pressure will continue home regimen and monitor. (3) Vertigo: Code(s): R42 - Dizziness and giddiness Status: Acute Assessment and Plan: patient with History of pituitary adenoma, acromegaly pending MRI result patient may benefit going to [facility] further evaluation (4) Chronic a-fib: Code(s): I48.20 - Chronic atrial fibrillation, unspecified Status: Acute Assessment and Plan: currently rate is controlled and stable (5) Type 2 diabetes mellitus with proliferative diabetic retinopathy without macular edema, bilateral: Code(s): E11.3593 - Type 2 diabetes mellitus with proliferative diabetic retinopathy without macular edema, bilateral Status: Acute Assessment and Plan: will resume home medication and monitor. DS: Summary Hospital Course Reason for hospitalization: History of Present Illness Date/Time: 04/06/20 13:30 with past medical history 9) History of pituitary adenoma, acromegaly, pituitary gigantism, gigantism, type 2 diabetes, coronary artery disease, patient was brought to the emergency department by EMS with complaint of nausea or vomiting and dizziness his heart rate was in 40s and patient was given atropine and Zofran which did help, patient was also given atropine in the emergency depart to bring is heart rate up and this also helps improve his nausea or vomiting and dizziness, also upon arrival patient blood pressure was extremely elevated 211/114 and patient was given clonidine which did help with blood pressure, Patient is seen by his
== END 2020-04-08 18:09 | disposition home or self-care (01) | DRG 310 ==
LOC: ANHED 04-06 02:15 → ANH3MED 04-06 02:30
PROVIDERS: Admitting Provider Internal Medicine; Emergency Provider Emergency Medicine; PCP Family Medicine; Visit Provider Family Medicine
DX: R00.1 Bradycardia, unspecified (principal); E11.3593 Type 2 diabetes mellitus with proliferative diabetic retinopathy without macular edema, bilateral; Z28.21 Immunization not carried out because of patient refusal; R42 Dizziness and giddiness; E11.22 Type 2 diabetes mellitus with diabetic chronic kidney disease; I12.9 Hypertensive chronic kidney disease with stage 1 through stage 4 chronic kidney disease, or unspecified chronic kidney disease; N18.9 Chronic kidney disease, unspecified; I48.20 Chronic atrial fibrillation, unspecified; I45.10 Unspecified right bundle-branch block; I25.10 Atherosclerotic heart disease of native coronary artery without angina pectoris; I25.2 Old myocardial infarction; N40.0 Benign prostatic hyperplasia without lower urinary tract symptoms; E78.5 Hyperlipidemia, unspecified; G47.33 Obstructive sleep apnea (adult) (pediatric); E22.0 Acromegaly and pituitary gigantism; M47.26 Other spondylosis with radiculopathy, lumbar region; Z79.82 Long term (current) use of aspirin; Z79.899 Other long term (current) drug therapy; Z86.018 Personal history of other benign neoplasm; Z95.1 Presence of aortocoronary bypass graft
CPT/HCPCS: 36415; 70450; 70553; 71045; 80048; 80053; 84484; 85025; 85610; 85730; 93005; 93880; 96374; 96375; 99285; A9270; A9577; C8929; G0378; J0360; J2405; J3360; Q9957

== ENCOUNTER 2020-04-17 12:48 | Outpatient (CLI) | payer MEDICARE, SELFPAY | END 2020-04-17 12:49 | disposition home or self-care (01) | LOC: ANHAUDIO 12:50 | PROVIDERS: PCP Family Medicine; Visit Provider Family Medicine | DX: H90.3 Sensorineural hearing loss, bilateral (principal) | CPT/HCPCS: 92557; 92567 ==

== ENCOUNTER 2020-11-03 14:46 | Emergency (ER) | payer MEDICARE, SELFPAY ==
--- NOTE | 2020-11-03 14:48 | ED.GENADULT ---
HPI - General Adult General Chief complaint: Wound/Laceration Stated complaint: rt arm laceration Time Seen by Provider: 11/03/20 14:48 Source: patient Mode of arrival: ambulatory Limitations: no limitations History of Present Illness HPI narrative: 70-year-old male patient presents to the [facility] with complaints of right arm laceration. Patient states that he was trimming some trees on a hill and fell forward lacerating his right arm on a tree limb. Patient unknown of when his last tetanus shot was. Patient does have history of diabetes and is on blood thinners. Patient also reports a scratch to the right side of the cheek and right side of the neck. Related Data Home Medications Medication Instructions Recorded Confirmed aspirin 81 mg PO DAILY 04/06/20 11/03/20 cabergoline 0.25 mg PO 2XW 04/06/20 11/03/20 calcium citrate malate-vit D3 4 tablet PO DAILY 04/06/20 11/03/20 cholecalciferol (vitamin D3) 50 mcg PO DAILY 04/06/20 11/03/20 [Vitamin D3] ferrous gluconate 236 mg PO DAILY 04/06/20 11/03/20 finasteride 5 mg PO DAILY 04/06/20 11/03/20 lisinopril 10 mg PO DAILY 04/06/20 11/03/20 mecobalamin (vitamin B12) 1,000 mcg SUBLINGUAL DAILY 04/06/20 11/03/20 atorvastatin 40 mg tablet 80 mg PO DAILY tablet 10/06/20 11/03/20 tamsulosin 0.4 mg PO DAILY 11/03/20 11/03/20 Allergies Allergy/AdvReac Type Severity Reaction Status Date / Time No Known Allergies Allergy Verified 11/03/20 14:52 Review of Systems Review of Systems: Narrative: CONSTITUTIONAL: Denies fever, chills, or sweats. EYES: Denies visual changes, redness, or discharge. ENT: Denies rhinorrhea, congestion, sore throat, or otalgia. CARDIOVASCULAR: Denies chest pain, palpitations, or edema. RESPIRATORY: Denies cough or dyspnea. GASTROINTESTINAL: Denies abdominal pain, nausea, vomiting, or diarrhea. GENITOURINARY: Denies dysuria or hematuria. SKIN: Denies rash or itching. Positive wound/lacerations to right forearm, right neck and right cheek. MUSCULOSKELETAL: Denies back pain, joint pain, or myalgia. NEUROLOGIC: Denies headache, numbness, or weakness. PSYCHIATRIC: Denies anxiety or depression. [facility] Past Medical History Medical History Afib BPH (benign prostatic hyperplasia) CAD (coronary artery disease) CKD (chronic kidney disease) Depression History of IA (myocardial infarction) History of pituitary adenoma HLD (hyperlipidemia) HTN (hypertension) JULIANA (obstructive sleep apnea) Osteoarthritis SSS (sick sinus syndrome) Type 2 diabetes mellitus with proliferative diabetic retinopathy without macular edema, bilateral Surgical History Surgical History History of coronary artery bypass graft Family History Family History Other Family history of congenital heart disease Social History Social History Smoking status: Never smoker Second hand tobacco smoke exposure: No Alcohol intake: never Substance use: never Substance use type: does not use Gender identity (if verbalized by the patient): Male Spiritual care concerns: No Comments At the time of my signature I agree with nursing past medical history, surgical, social, and family history. There is no relevant family history pertinent to the presenting complaint. Exam Narrative: Exam Narrative: GENERAL: Well-appearing, well-nourished, and in no acute distress. HEAD: Normocephalic, atraumatic. EYES: PERRLA and EOMI. ENT: Nares clear, no rhinorrhea or epistaxis. Mucous membranes moist. NECK: Supple. No lymphadenopathy CHEST: Clear to auscultation. No respiratory distress. HEART: Regular rate and rhythm. No murmur heard. Normal peripheral pulses. ABDOMEN: Soft, nontender, nondistended, normal active bowel sounds. EXTREMITIES: Normal range of motion. No edema. SKIN: [place]
[2020-11-03 14:51] VITALS: BP 150/91; PULSE 69; RESP 20; TEMP 36.1; O2SAT 98
[2020-11-03] MEDS: TETANUS/DIPHTHERIA TOXOIDS ADSORB 0.5 ML VIAL (*BKC) IM (15:12)
== END 2020-11-03 15:25 | disposition home or self-care (01) ==
PROVIDERS: Emergency Provider Nurse Practitioner Family; PCP Family Medicine
DX: S51.811A Laceration without foreign body of right forearm, initial encounter (principal); W45.8XXA Other foreign body or object entering through skin, initial encounter; S01.411A Laceration without foreign body of right cheek and temporomandibular area, initial encounter; S11.91XA Laceration without foreign body of unspecified part of neck, initial encounter; I48.91 Unspecified atrial fibrillation; N40.0 Benign prostatic hyperplasia without lower urinary tract symptoms; I13.10 Hypertensive heart and chronic kidney disease without heart failure, with stage 1 through stage 4 chronic kidney disease, or unspecified chronic kidney disease; E11.22 Type 2 diabetes mellitus with diabetic chronic kidney disease; N18.9 Chronic kidney disease, unspecified; I25.10 Atherosclerotic heart disease of native coronary artery without angina pectoris; F32.9 Major depressive disorder, single episode, unspecified; I25.2 Old myocardial infarction; E78.5 Hyperlipidemia, unspecified; G47.33 Obstructive sleep apnea (adult) (pediatric); I49.5 Sick sinus syndrome; E11.3593 Type 2 diabetes mellitus with proliferative diabetic retinopathy without macular edema, bilateral
CPT/HCPCS: 90471; 90714; 99213; G0463

== ENCOUNTER 2021-01-16 19:06 | Emergency (ER) | payer MEDICARE, SELFPAY ==
[2021-01-16 19:10] VITALS: PULSE 42
--- NOTE | 2021-01-16 19:28 | ED.DIZZY ---
HPI - Dizziness General Chief Complaint: Dizziness Stated Complaint: dizzy/nausea Time Seen by Provider: 01/16/21 19:10 Source: patient, family () and RN notes reviewed Mode of arrival: ambulatory Limitations: no limitations History of Present Illness HPI Narrative: 70-year-old male with a significant cardiac history presents [facility] feeling weak, dizzy, diaphoretic started approximately 1730 today. On arrival patient had trouble walking 50 feet from registration to room 1. Patient became pale, diaphoretic, cool to touch. EKG done immediately showed bradycardia rate of 48, heart rate dropped as low as 28. MD elicited complaint: dizziness, lightheadedness, near syncope and difficulty walking Related Data Home Medications Medication Instructions Recorded Confirmed aspirin 81 mg PO DAILY 04/06/20 11/03/20 cabergoline 0.25 mg PO 2XW 04/06/20 11/03/20 calcium citrate malate-vit D3 4 tablet PO DAILY 04/06/20 11/03/20 cholecalciferol (vitamin D3) 50 mcg PO DAILY 04/06/20 11/03/20 [Vitamin D3] ferrous gluconate 236 mg PO DAILY 04/06/20 11/03/20 finasteride 5 mg PO DAILY 04/06/20 11/03/20 lisinopril 10 mg PO DAILY 04/06/20 11/03/20 mecobalamin (vitamin B12) 1,000 mcg SUBLINGUAL DAILY 04/06/20 11/03/20 atorvastatin 40 mg tablet 80 mg PO DAILY tablet 10/06/20 11/03/20 tamsulosin 0.4 mg PO DAILY 11/03/20 11/03/20 Allergies Allergy/AdvReac Type Severity Reaction Status Date / Time No Known Allergies Allergy Verified 11/03/20 14:52 Review of Systems Review of Systems: All systems reviewed & are unremarkable except as noted in HPI and below Constitutional: Constitutional: Reports no additional constitutional complaints, Denies chills and Denies fever(s) Eyes: Eyes: Reports no additional eye complaints and Denies change in vision ENT: Reports system reviewed and no additional complaints, except as documented Cardiovascular: Cardiovascular: Reports as per HPI, Denies chest pain and Reports slow heart rate Respiratory: Respiratory: Reports no additional respiratory complaints, Denies cough and Denies dyspnea Gastrointestinal: Gastrointestinal: Reports as per HPI, Denies abdominal pain, Reports nausea and Denies vomiting Musculoskeletal: Musculoskeletal: Reports no additional musculoskeletal complaints Integumentary/Breasts: Skin/Breast: Reports system reviewed and no additional complaints, except as docu Neurologic: Reports vertigo, Reports dizziness, Reports syncope, Denies numbness and Reports weakness Psychiatric: Psychiatric: Reports no additional psychiatric complaints Allergic/Immunologic: Allergic/Immunologic: Reports no additional allergic/immunologic complaints [facility] Past Medical History Medical History Afib BPH (benign prostatic hyperplasia) CAD (coronary artery disease) CKD (chronic kidney disease) Depression History of [place] (myocardial infarction) History of pituitary adenoma HLD (hyperlipidemia) HTN (hypertension) JULIANA (obstructive sleep apnea) Osteoarthritis SSS (sick sinus syndrome) Type 2 diabetes mellitus with proliferative diabetic retinopathy without macular edema, bilateral Surgical History Surgical History History of coronary artery bypass graft Family History Family History Other Family history of congenital heart disease Social History Social History Smoking status: Never smoker Second hand tobacco smoke exposure: No Alcohol intake: never Substance use: never Substance use type: does not use Gender identity (if verbalized by the patient): Male Spiritual care concerns: No Comments At the time of my signature, I reviewed and agree with the nursing past medical, surgical, social, and family history. There is no relevant family history pertinent to the patient compl
[2021-01-16 19:36] VITALS: BP 158/81; PULSE 50; RESP 18; TEMP 35.9; O2SAT 98
--- NOTE | 2021-01-16 19:38 | ECG_ITS ---
Measurements Intervals [place] Rate: 52 P: 5 [place]: 162 QRS: -6 QRSD: 176 T: 70 QT: 519 QTc: 483 Interpretive Statements SINUS BRADYCARDIA RIGHT BUNDLE BRANCH BLOCK BASELINE WANDER- V2 ABNORMAL ECG Electronically Signed On 01-17-2021 6:53:02 CDT by Dick Carlton D.O.
== END 2021-01-16 19:27 | disposition short-term general hospital (02) ==
PROVIDERS: Emergency Provider Nurse Practitioner; PCP Family Medicine
DX: R00.1 Bradycardia, unspecified (principal); R42 Dizziness and giddiness; I48.91 Unspecified atrial fibrillation; N40.0 Benign prostatic hyperplasia without lower urinary tract symptoms; I25.10 Atherosclerotic heart disease of native coronary artery without angina pectoris; I13.10 Hypertensive heart and chronic kidney disease without heart failure, with stage 1 through stage 4 chronic kidney disease, or unspecified chronic kidney disease; E11.22 Type 2 diabetes mellitus with diabetic chronic kidney disease; N18.9 Chronic kidney disease, unspecified; E11.319 Type 2 diabetes mellitus with unspecified diabetic retinopathy without macular edema; F32.9 Major depressive disorder, single episode, unspecified; I25.2 Old myocardial infarction; E78.5 Hyperlipidemia, unspecified; M19.90 Unspecified osteoarthritis, unspecified site; Z95.1 Presence of aortocoronary bypass graft
CPT/HCPCS: 93005; 99215; G0463

== ENCOUNTER 2021-01-16 19:45 | Emergency (ER) | payer MEDICARE, SELFPAY ==
--- NOTE | ~2021-01-16 | CT_ITS ---
EXAMINATION: CT brain wo con EXAM DATE: 01/16/2021 20:25 INDICATION: Dizziness, diaphoresis. TECHNIQUE: Spiral CT of the head was performed without contrast. Axial, coronal and sagittal images were reviewed. The dose-length product (DLP) for this examination was 605.33 mGy-cm. The exposure w as tailored according to patient size, and iterative reconstruction (ASIR) was used as additional dos e reduction technique. Comparison is made to prior examination from 04/06/2020. 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 Old small left cerebella r and right occipital lobe infarctions. There is no acute intraparenchymal hemorrhage. No evidence o f intraparenchymal brain mass lesion. No evidence of acute infarction. Please note that initial hea d CT has limited sensitivity for small or acute infarctions. There is mild periventricular and subcor tical hypodensity, nonspecific but probably related to small vessel ischemic disease. There is mode rate prominence of the sulci and ventricles related to cerebral atrophy. Chronic vertebral basilar a nd bilateral carotid extensive arteriosclerosis, and ectasia unchanged. There is intracranial carotid arteriosclerosis. There are no extra-axial collections. There is no mass effect or midline shift. The orbits are unremarkable. Soft tissue is unremarkable. Bony floor of the sella turcica not iden tified, no osseous partition seen between the sella turcica and the sphenoid opacity. This is unchang ed compared to 2004. IMPRESSION: Chronic findings. Reviewed, dictated and finalized at location A. IMPRESSION: Chronic findings.
[2021-01-16 19:48] VITALS: BP 189/99; PULSE 51; RESP 18; TEMP 36.8; O2SAT 100
--- NOTE | 2021-01-16 19:59 | ECG_ITS ---
Measurements Intervals [place] Rate: 48 P: 5 [place]: 201 QRS: 2 QRSD: 166 T: 61 QT: 508 QTc: 455 Interpretive Statements SINUS BRADYCARDIA RIGHT BUNDLE BRANCH BLOCK ABNORMAL ECG Electronically Signed On 01-17-2021 6:52:18 CDT by Dick Carlton D.O.
--- NOTE | 2021-01-16 20:16 | ED.DIZZY ---
HPI - Dizziness General Chief Complaint: Dizziness Stated Complaint: sinus last Time Seen by Provider: 01/16/21 19:57 Source: patient Mode of arrival: ambulatory Limitations: no limitations History of Present Illness HPI Narrative: Patient is a 70-year-old male complaining of dizziness and nausea that started around 5:00 this afternoon and now resolved. Patient was seen in urgent care and was sent here due to his dizziness and bradycardia. Patient states that he does have a history of vertigo, last time he had it was last year and the symptoms was worse compared to today's. Patient states that the last time he had vertigo , his heart rate was also low. Patient currently has no complaints at this time. Patient denies any headache, speech or visual disturbance, focal weakness or numbness, chest pain, shortness of breath, abdominal pain, vomiting, diarrhea, fever or chills. Related Data Home Medications Medication Instructions Recorded Confirmed aspirin 81 mg PO DAILY 04/06/20 11/03/20 cabergoline 0.25 mg PO 2XW 04/06/20 11/03/20 calcium citrate malate-vit D3 4 tablet PO DAILY 04/06/20 11/03/20 cholecalciferol (vitamin D3) 50 mcg PO DAILY 04/06/20 11/03/20 [Vitamin D3] ferrous gluconate 236 mg PO DAILY 04/06/20 11/03/20 finasteride 5 mg PO DAILY 04/06/20 11/03/20 lisinopril 10 mg PO DAILY 04/06/20 11/03/20 mecobalamin (vitamin B12) 1,000 mcg SUBLINGUAL DAILY 04/06/20 11/03/20 atorvastatin 40 mg tablet 80 mg PO DAILY tablet 10/06/20 11/03/20 tamsulosin 0.4 mg PO DAILY 11/03/20 11/03/20 Allergies Allergy/AdvReac Type Severity Reaction Status Date / Time No Known Allergies Allergy Verified 11/03/20 14:52 Review of Systems Review of Systems: All systems reviewed & are unremarkable except as noted in HPI and below Constitutional: Constitutional: Denies body ache(s), Denies chills, Denies excessive sweating, Denies fatigue, Denies fever(s), Denies headache(s), Denies lethargy, Denies malaise, Denies weakness and Denies weight loss Eyes: Eyes: Denies blurry vision, Denies change in vision and Denies loss of vision ENT: Denies dizziness, Denies ear discharge, Denies headache(s), Denies lip swelling, Denies epistaxis, Denies nasal congestion, Denies neck pain, Denies throat swelling and Denies tongue swelling Cardiovascular: Cardiovascular: Denies chest pain, Denies chest pain at rest, Denies chest pain with activity, Denies diaphoresis, Denies rapid heart rate, Denies edema, Denies irregular heart rhythm, Denies lightheadedness, Denies palpitations, Denies dyspnea and Denies dyspnea on exertion Respiratory: Respiratory: Denies chest congestion, Denies cough, Denies hemoptysis, Denies dyspnea and Denies dyspnea on exertion Gastrointestinal: Gastrointestinal: Denies abdominal pain, Denies melena, Denies hematochezia, Denies diarrhea, Denies vomiting and Denies hematemesis Musculoskeletal: Musculoskeletal: Denies abnormal gait, Denies deformity, Denies joint swelling, Denies limited range of motion, Denies neck pain and Denies numbness Neurologic: Denies Abnormal speech present, Denies abnormal gait, Denies confusion, Denies headache(s), Denies focal weakness, Denies loss of vision, Denies numbness, Denies Other visual disturbances, Denies Sensory deficit (Neuro) and Denies weakness Psychiatric: Psychiatric: Denies confusion, Denies depression, Denies auditory hallucinations, Denies homicidal ideation and Denies suicidal ideation Endocrine: Endocrine: Denies cold intolerance, Denies excessive sweating, Denies fatigue, Denies heat intolerance and Denies palpitations Hematologic/Lymphatic: Hematologic/Lymphatic: Denies easy bleeding and Denies easy bruising Allergic/Immunologic: Allergic/Immunologic: Denies lip swelling, Denies throat swelling and Denies tongue swelling [facility] Past Medical History Medical History Afib BPH (benign prostatic hyperplasia) CAD (coronary artery di
[2021-01-16 20:19] LABS: Basophils Absolute Auto 0.1 K/mm3 (0.0-0.1); Basophils Percent Auto 0.8 % (0.2-1.2); Eosinophils Absolute Auto 0.2 K/mm3 (0-0.3); Eosinophils Percent Auto 3.7 % (0-4.4); Hematocrit 38.6 % (42.0-52.0); Hemoglobin 12.7 g/dL (14.0-18.0); Immature Granulocyte Absolute 0.02 K/mm3 (0.00-0.031); Immature Granulocyte Percent A 0.3 % (0-0.5); Lymphocytes Absolute Auto 1.51 K/mm3 (0.9-3.2); Lymphocytes Percent Auto 25.3 % (18.3-44.2); Mean Corpuscular HGB Conc 32.9 g/dl (32-36); Mean Corpuscular Hemoglobin 30.5 pg (26-34); Mean Corpuscular Volume 92.8 fl (80-100); Mean Platelet Volume 8.7 fl (7.4-10.4); Monocytes Absolute Auto 0.4 K/mm3 (0.1-0.6); Monocytes Percent Auto 7.2 % (2.6-8.5); Neutrophils Absolute Auto 3.8 K/mm3 (1.3-6.7); Neutrophils Percent Auto 62.7 % (45.5-73.1); Platelet Count Result 163 k/mm3 (150-375); Red Blood Count 4.16 M/mm3 (4.6-6.20); Red Cell Distribution Width 13.1 % (11.5-14.5)
[2021-01-16 20:30] LABS: Anion Gap 6 mmol/L (8-16); Blood Urea Nitrogen 28 mg/dL (9-20); Calcium 9.4 mg/dL (8.4-10.2); Carbon Dioxide 28 mmol/L (22-30); Chloride 103 mmol/L (98-107); Estimated CRCL calculation 81 ml/min; Estimated Glomerular Filt Rate > 60; Glucose 139 mg/dL (75-110); Potassium 4.2 mmol/L (3.4-5.0); Sodium 137 mmol/L (137-145)
[2021-01-16 20:42] LABS: Troponin I < 0.012 ng/mL (0.000-0.034)
[2021-01-16 21:36] VITALS: BP 175/98; PULSE 52
[2021-01-16 21:37] VITALS: BP 174/102; PULSE 52
[2021-01-16 21:39] VITALS: BP 180/102; PULSE 56
== END 2021-01-16 22:33 | disposition home or self-care (01) ==
PROVIDERS: Emergency Provider Emergency Medicine; PCP Family Medicine
DX: R42 Dizziness and giddiness (principal); R00.1 Bradycardia, unspecified; I48.91 Unspecified atrial fibrillation; N40.0 Benign prostatic hyperplasia without lower urinary tract symptoms; I25.10 Atherosclerotic heart disease of native coronary artery without angina pectoris; E11.22 Type 2 diabetes mellitus with diabetic chronic kidney disease; I12.9 Hypertensive chronic kidney disease with stage 1 through stage 4 chronic kidney disease, or unspecified chronic kidney disease; N18.9 Chronic kidney disease, unspecified; I25.2 Old myocardial infarction; E78.5 Hyperlipidemia, unspecified; G47.33 Obstructive sleep apnea (adult) (pediatric); M19.90 Unspecified osteoarthritis, unspecified site; E11.3593 Type 2 diabetes mellitus with proliferative diabetic retinopathy without macular edema, bilateral; Z95.1 Presence of aortocoronary bypass graft; Z79.82 Long term (current) use of aspirin; I45.10 Unspecified right bundle-branch block
CPT/HCPCS: 36415; 70450; 80048; 84484; 85025; 93005; 99284

== ENCOUNTER 2021-02-03 01:23 | Day surgery (SDC) | payer MEDICARE, SELFPAY ==
[2021-01-21 14:37] VITALS: BMI 44.5
[2021-02-03 10:08] LABS: Glucose Point of Care 81 mg/dl (65-105)
[2021-02-03 10:14] VITALS: BP 164/94; PULSE 61; RESP 17; TEMP 35.7; O2SAT 96
[2021-02-03] MEDS: LACTATED RINGERS 1,000 ML 150 ML IV CONT (10:27)
--- NOTE | 2021-02-03 10:54 | PM.HPGS ---
History of Present Illness History of Present Illness Consent: Risks, benefits, and alternatives have been discussed and questions answered. Patient agrees to proceed with procedure. Chief complaint: neoplasm screening Narrative: Kieran Phelan is a 70 year old male due for another colonoscopy, last one about 7-8 years ago with polyp Review of Systems Constitutional: Constitutional: Denies headache(s) and Denies weakness Eyes: Eyes: Denies blurry vision ENT: Reports Normal hearing present, Denies headache(s) and Denies neck pain Cardiovascular: Cardiovascular: Denies chest pain and Denies dyspnea Respiratory: Respiratory: Denies dyspnea Gastrointestinal: Gastrointestinal: Reports no additional gastrointestinal complaints Genitourinary: Genitourinary: Denies dysuria Musculoskeletal: Musculoskeletal: Denies neck pain Integumentary/Breasts: Skin/Breast: Denies dry skin Neurologic: Reports Normal hearing present, Denies headache(s) and Denies weakness Psychiatric: Psychiatric: Denies anxiety Endocrine: Endocrine: Denies change in body appearance Hematologic/Lymphatic: Hematologic/Lymphatic: Denies easy bleeding Allergic/Immunologic: Allergic/Immunologic: Denies urticaria PMFSH Past Medical History Medical History (Updated 02/03/21 @ 10:54 by Jose De Jesus Baig MD) Afib BPH (benign prostatic hyperplasia) CAD (coronary artery disease) CKD (chronic kidney disease) Colon cancer screening Depression History of [place] (myocardial infarction) History of pituitary adenoma HLD (hyperlipidemia) HTN (hypertension) JULIANA (obstructive sleep apnea) Osteoarthritis SSS (sick sinus syndrome) Type 2 diabetes mellitus with proliferative diabetic retinopathy without macular edema, bilateral Surgical History Surgical History History of coronary artery bypass graft Family History Family History Other Family history of congenital heart disease Social History Social History Smoking status: Never smoker Second hand tobacco smoke exposure: No Alcohol intake: never Substance use: never Substance use type: does not use Living arrangements: with family Gender identity (if verbalized by the patient): Male Spiritual care concerns: No Meds Home Medications and Allergies Home Medications Medication Instructions Recorded Confirmed Type aspirin 81 mg PO DAILY 04/06/20 01/21/21 History cabergoline 0.5 mg PO 2XW 04/06/20 01/21/21 History calcium citrate malate-vit D3 4 tablet PO DAILY 04/06/20 01/21/21 History cholecalciferol (vitamin D3) 50 mcg PO DAILY 04/06/20 01/21/21 History [Vitamin D3] ferrous gluconate 236 mg PO DAILY 04/06/20 01/21/21 History finasteride 5 mg PO DAILY 04/06/20 01/21/21 History lisinopril 10 mg PO DAILY 04/06/20 01/21/21 History mecobalamin (vitamin B12) 1,000 mcg SUBLINGUAL DAILY 04/06/20 01/21/21 History potassium chloride 20 mEq 40 meq PO DAILY #180 tablet 07/14/20 01/21/21 Rx tablet,extended release bumetanide 0.5 mg tablet 0.25 mg PO DAILY #45 tablet 09/08/20 01/21/21 Rx sertraline 100 mg tablet 150 mg PO DAILY #135 tablet 09/30/20 01/21/21 Rx atorvastatin 40 mg tablet 80 mg PO DAILY tablet 10/06/20 01/21/21 History tamsulosin 0.4 mg PO DAILY 11/03/20 01/21/21 History clopidogrel 75 mg tablet 75 mg PO DAILY #90 tablet 12/10/20 01/21/21 Rx Allergies Allergy/AdvReac Type Severity Reaction Status Date / Time No Known Allergies Allergy Verified 02/03/21 10:09 Vital Signs Vital Signs - 24 hr 02/03/21 10:14 Temperature 96.2 F L Pulse Rate 61 Respiratory Rate 17 Blood Pressure 164/94 H Pulse Oximetry 96 Exam Const: General: comfortable and no acute distress HENMT: General nose exam: Normal nares present Eyes: General: appearance normal, both eyes and all related structures Neck:
--- NOTE | 2021-02-03 10:57 | WPDANESEPPF ---
Anes - Initial Pre Proc Eval Procedure: Operation Date: 02/03/21 11:00 Proposed Procedures p Screening Colonoscopy - Jose De Jesus Baig MD Date/Time: 02/03/21 10:57 Surgeon: Jose De Jesus Baig MD Pre Op Diagnosis: neoplasm screening Patient Data Age: 70 Gender: M Height: 1.7 m Weight: 125 kg Last Vital Signs Temp 96.2 F L 02/03/21 10:14 Pulse 61 02/03/21 10:14 Resp 17 02/03/21 10:14 BP 164/94 H 02/03/21 10:14 Pulse Ox 96 02/03/21 10:14 Allergies Allergy/AdvReac Type Severity Reaction Status Date / Time No Known Allergies Allergy Verified 02/03/21 10:09 Home Medications Medication Instructions Recorded Confirmed Type aspirin 81 mg PO DAILY 04/06/20 01/21/21 History cabergoline 0.5 mg PO 2XW 04/06/20 01/21/21 History calcium citrate malate-vit D3 4 tablet PO DAILY 04/06/20 01/21/21 History cholecalciferol (vitamin D3) 50 mcg PO DAILY 04/06/20 01/21/21 History [Vitamin D3] ferrous gluconate 236 mg PO DAILY 04/06/20 01/21/21 History finasteride 5 mg PO DAILY 04/06/20 01/21/21 History lisinopril 10 mg PO DAILY 04/06/20 01/21/21 History mecobalamin (vitamin B12) 1,000 mcg SUBLINGUAL DAILY 04/06/20 01/21/21 History potassium chloride 20 mEq 40 meq PO DAILY #180 tablet 07/14/20 01/21/21 Rx tablet,extended release bumetanide 0.5 mg tablet 0.25 mg PO DAILY #45 tablet 09/08/20 01/21/21 Rx sertraline 100 mg tablet 150 mg PO DAILY #135 tablet 09/30/20 01/21/21 Rx atorvastatin 40 mg tablet 80 mg PO DAILY tablet 10/06/20 01/21/21 History tamsulosin 0.4 mg PO DAILY 11/03/20 01/21/21 History clopidogrel 75 mg tablet 75 mg PO DAILY #90 tablet 12/10/20 01/21/21 Rx Laboratory Tests 02/03/21 10:05 POC Capillary Glucose 81 mg/dl mg/dl (65-105) Patient hx anesthesia problems: none Family hx anesthesia problems: none PMFSH Past Medical History Medical History (Updated 02/03/21 @ 10:54 by Jose De Jesus Baig MD) Afib BPH (benign prostatic hyperplasia) CAD (coronary artery disease) CKD (chronic kidney disease) Colon cancer screening Depression History of [place] (my[place] infarction) History of pituitary adenoma HLD (hyperlipidemia) HTN (hypertension) JULIANA (obstructive sleep apnea) Osteoarthritis SSS (sick sinus syndrome) Type 2 diabetes mellitus with proliferative diabetic retinopathy without macular edema, bilateral Surgical History Surgical History History of coronary artery bypass graft Family History Family History Other Family history of congenital heart disease Social History Social History Smoking status: Never smoker Second hand tobacco smoke exposure: No Alcohol intake: never Substance use: never Substance use type: does not use Living arrangements: with family Gender identity (if verbalized by the patient): Male Spiritual care concerns: No Anes - Eval Final PreProcedure Day of Procedure 02/03/21 10:57 Patient weight: morbidly obese Heart: irregular rhythm Lungs: clear to auscultation Airway: Mallampati scale class III Neurological: alert and oriented Last oral intake: >/= 8 hours ASA classification: IV Emergent: no Anesthetic plan: proceed Anesthesia type and monitoring: general GIVS and standard monitoring Informed Consent: The patient's anesthetic plan and its attendant risks and benefits were discussed with the patient/family/POA. Questions were solicited and answers provided to the satisfaction of the patient/family/POA.
[2021-02-03 11:35] VITALS: BP 121/74; PULSE 57; RESP 17; O2SAT 100
[2021-02-03 11:43] LABS: Glucose Point of Care 86 mg/dl (65-105)
[2021-02-03 11:45] VITALS: BP 124/79; PULSE 59; RESP 21; O2SAT 100
[2021-02-03 11:55] VITALS: BP 149/98; PULSE 54; RESP 21; O2SAT 98
== END 2021-02-03 12:10 | disposition home or self-care (01) ==
PROVIDERS: PCP Family Medicine; Visit Provider Internal Medicine Gastroenterology
PROC: 0DJD8ZZ Inspection of Lower Intestinal Tract, Via Natural or Artificial Opening Endoscopic (ICD-10-PCS; CPT 45378; principal; 2021-02-03 11:00)
DX: Z12.11 Encounter for screening for malignant neoplasm of colon (principal); K57.30 Diverticulosis of large intestine without perforation or abscess without bleeding; K64.8 Other hemorrhoids; Z86.010 Personal history of colon polyps; I48.91 Unspecified atrial fibrillation; I25.10 Atherosclerotic heart disease of native coronary artery without angina pectoris; N40.0 Benign prostatic hyperplasia without lower urinary tract symptoms; I12.9 Hypertensive chronic kidney disease with stage 1 through stage 4 chronic kidney disease, or unspecified chronic kidney disease; N18.9 Chronic kidney disease, unspecified; I25.2 Old myocardial infarction; E11.22 Type 2 diabetes mellitus with diabetic chronic kidney disease; E78.5 Hyperlipidemia, unspecified; G47.33 Obstructive sleep apnea (adult) (pediatric); I49.5 Sick sinus syndrome; E11.3593 Type 2 diabetes mellitus with proliferative diabetic retinopathy without macular edema, bilateral; F32.9 Major depressive disorder, single episode, unspecified; Z95.1 Presence of aortocoronary bypass graft; Z79.82 Long term (current) use of aspirin; Z79.02 Long term (current) use of antithrombotics/antiplatelets; E66.01 Morbid (severe) obesity due to excess calories; Z68.41 Body mass index [BMI] 40.0-44.9, adult
CPT/HCPCS: G0105; 82948; J2704; J7120

== ENCOUNTER 2022-02-18 11:04 | Outpatient (CLI) | payer MEDICARE, SELFPAY ==
--- NOTE | ~2022-02-18 | XR_ITS ---
XR lumbar spine 2-3V DATE: 02/18/2022 11:30 INDICATION: Low back pain after a fall one week ago TECHNIQUE: AP, lateral, coned lateral lumbosacral views COMPARISON: 03/20/2019 MRI lumbar spine 01/31/2019 lumbar spine FINDINGS: Osteopenia. Levoscoliosis of the thoracolumbar spine. Prominent degenerative spurring in the lower thoracic and lumbar spine. Mild degenerative disc disease at L1-2 and L2-3. There is moderately severe degenerative disc disease at L3-4 and L4-5, with prominent interval loss o f disc space height at L3-4 since 01/31/2019. Due to angulation of the patient, and the L5-S1 interspace is not optimally demonstrated on lateral v iew. The lower thoracic and lumbar pedicles are intact. No fracture or bone destruction is evident. No spondylolisthesis. The sacroiliac joints are intact. IMPRESSION: Prominent degenerative disc disease Osteopenia Reviewed, dictated and finalized at location B.
== END 2022-02-18 11:05 | disposition home or self-care (01) ==
PROVIDERS: PCP Family Medicine; Visit Provider Nurse Practitioner Family
DX: M51.36 Other intervertebral disc degeneration, lumbar region (principal); M85.88 Other specified disorders of bone density and structure, other site
CPT/HCPCS: 72100

== ENCOUNTER 2023-02-24 11:46 | Emergency (ER) | payer MEDICARE, SELFPAY ==
[2023-02-24 12:05] VITALS: BP 127/71; PULSE 78; RESP 16; TEMP 36.2; O2SAT 100
--- NOTE | 2023-02-24 12:25 | ED.HA ---
HPI - Headache General Chief Complaint: Headache Stated Complaint: Headache;Nausea; Time Seen by Provider: 02/24/23 12:06 Source: patient, family () and RN notes reviewed Mode of arrival: ambulatory (With cane) Limitations: no limitations History of Present Illness HPI Narrative: Patient presents today complaining of a 3 day history of dull frontal headache, nausea, fatigue, decreased appetite. He also reports 2 episodes of diarrhea today. Currently rates his headache 5/10 and has been taking Tylenol and ibuprofen with little relief. Patient denies fever, vomiting, lightheadedness, numbness or tingling in the extremities, vision changes, photophobia, phonophobia, abdominal pain. He reports dizziness a few days ago, but this has since resolved. History of AFib for which he takes Plavix. Patient had a right knee replacement 6 weeks ago at [facility]. He had a follow up appointment 4 days ago and was told his knee looks good. States he has the same amount of redness at that appointment that he does today. Will see his ortho again in 3 weeks. Related Data Home Medications Medication Instructions Recorded Confirmed aspirin 81 mg tablet,delayed 81 mg PO DAILY 04/06/20 02/24/23 release cabergoline 0.5 mg tablet 0.5 mg PO 2XW 04/06/20 02/24/23 calcium citrate malate 250 4 tablet PO DAILY 04/06/20 02/24/23 mg-vitamin D3 2.5 mcg (100 unit) tablet cholecalciferol (vitamin D3) 50 50 mcg PO DAILY 04/06/20 02/24/23 mcg (2,000 unit) capsule (Vitamin D3) ferrous gluconate 236 mg (27 mg 236 mg PO DAILY 04/06/20 02/24/23 iron) tablet lisinopril 10 mg tablet 10 mg PO DAILY 04/06/20 02/24/23 mecobalamin (vitamin B12) 1,000 1,000 mcg sublingual DAILY 04/06/20 02/24/23 mcg disintegrating tablet,sublingual atorvastatin 40 mg tablet 80 mg PO DAILY 10/06/20 02/24/23 acetaminophen 650 mg 1,300 mg PO Q12H 10/26/21 02/24/23 tablet,extended release (Tylenol Arthritis Pain) ezetimibe 10 mg tablet (Zetia) 10 mg PO DAILY 10/26/21 02/24/23 levothyroxine 50 mcg tablet 50 mcg PO DAILY 10/26/21 02/24/23 mirabegron 50 mg tablet,extended 50 mg PO DAILY 10/26/21 02/24/23 release 24 hr (Myrbetriq) Allergies Allergy/AdvReac Type Severity Reaction Status Date / Time No Known Allergies Allergy Verified 02/24/23 11:57 Review of Systems Review of Systems: CONSTITUTIONAL: Denies body aches, fever, chills, or sweats.+ fatigue EYES: Denies visual changes, redness, or discharge. ENT: Denies rhinorrhea, congestion, sore throat, or otalgia. CARDIOVASCULAR: Denies chest pain, palpitations, or edema. RESPIRATORY: Denies cough or dyspnea. GASTROINTESTINAL: Denies abdominal pain, vomiting. + nausea, diarrhea, decreased appetite GENITOURINARY: Denies dysuria or hematuria. SKIN: Denies rash, itching, or wounds. MUSCULOSKELETAL: Denies back pain, joint pain, or myalgia. NEUROLOGIC: Denies numbness, tingling, or weakness.+ headache PSYCH: Denies depression or anxiety. [facility] Past Medical History Medical History Afib BPH (benign prostatic hyperplasia) CAD (coronary artery disease) CKD (chronic kidney disease) Colon cancer screening Depression History of [place] (myocardial infarction) History of pituitary adenoma HLD (hyperlipidemia) HTN (hypertension) Obesity JULIANA (obstructive sleep apnea) Osteoarthritis SSS (sick sinus syndrome) Type 2 diabetes mellitus with proliferative diabetic retinopathy without macular edema, bilateral Surgical History Surgical History History of coronary artery bypass graft Total knee replacement status Family History Family History Other Family history of congenital heart disease Social History Social History Smoking status: Never smoker Second
== END 2023-02-24 12:28 | disposition short-term general hospital (02) ==
PROVIDERS: Emergency Provider Nurse Practitioner; PCP Family Medicine
DX: R51.9 Headache, unspecified (principal); R53.83 Other fatigue; R19.7 Diarrhea, unspecified; I48.91 Unspecified atrial fibrillation; N40.0 Benign prostatic hyperplasia without lower urinary tract symptoms; I25.10 Atherosclerotic heart disease of native coronary artery without angina pectoris; I13.10 Hypertensive heart and chronic kidney disease without heart failure, with stage 1 through stage 4 chronic kidney disease, or unspecified chronic kidney disease; E11.22 Type 2 diabetes mellitus with diabetic chronic kidney disease; N18.9 Chronic kidney disease, unspecified; I25.2 Old myocardial infarction; E78.5 Hyperlipidemia, unspecified; E66.9 Obesity, unspecified; Z68.41 Body mass index [BMI] 40.0-44.9, adult; M19.90 Unspecified osteoarthritis, unspecified site; I49.5 Sick sinus syndrome; E11.3593 Type 2 diabetes mellitus with proliferative diabetic retinopathy without macular edema, bilateral; Z95.1 Presence of aortocoronary bypass graft; Z79.82 Long term (current) use of aspirin
CPT/HCPCS: 99213; G0463

== ENCOUNTER 2023-02-24 12:48 | Emergency (ER) | payer MEDICARE, SELFPAY ==
[2023-02-24] VITALS (11 sets, daily range): BP systolic 130–163; BP diastolic 66–81; PULSE 65–78; RESP 14–21; TEMP 37.6; O2SAT 96–100
--- NOTE | ~2023-02-24 | CT_ITS ---
EXAMINATION: CT brain wo con DATE: 02/24/2023 16:33 INDICATION: Headache. TECHNIQUE: Computed tomography (CT) of the head was performed without intravenous contrast. The mA wa s adjusted according to patient size. Iterative reconstruction technique was employed. The dose-lengt h product was 681.00 mGy-cm. COMPARISON: Head CT 01/16/2021 FINDINGS: There is an old infarct in left cerebellum. There is an old infarct in right occipital lobe . There is an old infarct involving the left basal ganglia and anterior limb left internal capsule. T here is old infarct in left parietal occipital region. There is no intracranial hemorrhage, acute inf arction, or abnormal intracranial mass lesion. There is ex vacuo dilatation of body of left lateral v entricle. There is mucosal thickening in sphenoid sinus with thickening and sclerosis of the sinus wa lls, consistent with chronic sinusitis. The mastoid air cells are normal. The orbits are normal. IMPRESSION: 1. Multiple old infarcts in the brain. 2. Chronic sinusitis. Reviewed, dictated and finalized at location A.
--- NOTE | ~2023-02-24 | XR_ITS ---
EXAMINATION: XR knee RT min 4V DATE: 02/24/2023 15:58 INDICATION: Right knee redness and swelling. TECHNIQUE: 4 views of right knee were obtained. COMPARISON: Right knee radiographs 10/13/2017 FINDINGS: There is a total right knee arthroplasty with patellar resurfacing in near-anatomic alignme nt. No fracture. No periprosthetic lucency to suggest loosening or infection. There is a moderate-siz ed knee joint effusion. There is prepatellar soft tissue swelling. IMPRESSION: 1. Total right knee arthroplasty in near-anatomic alignment. 2. Moderate-sized right knee joint effusion. 3. Prepatellar bursitis. Reviewed, dictated and finalized at location A.
[2023-02-24 13:10] LABS: Basophils Percent Auto 0.3 % (0.2-1.2); Eosinophils Percent Auto 0.3 % (0-4.4); Hemoglobin 12.7 g/dL (14.0-18.0); Immature Granulocyte Absolute 0.07 K/mm3 (0.00-0.031); Immature Granulocyte Percent A 0.6 % (0-0.5); Lymphocytes Absolute Auto 1.26 K/mm3 (0.9-3.2); Lymphocytes Percent Auto 10.7 % (18.3-44.2); Mean Corpuscular HGB Conc 32.6 g/dl (32-36); Mean Corpuscular Hemoglobin 30.4 pg (26-34); Mean Corpuscular Volume 93.3 fl (80-100); Monocytes Absolute Auto 0.9 K/mm3 (0.1-0.6); Monocytes Percent Auto 7.4 % (2.6-8.5); Neutrophils Absolute Auto 9.5 K/mm3 (1.3-6.7); Neutrophils Percent Auto 80.7 % (45.5-73.1); Platelet Count Result 206 k/mm3 (150-375); Red Blood Count 4.18 M/mm3 (4.6-6.20); Red Cell Distribution Width 13.7 % (11.5-14.5); White Blood Count 11.8 K/mm3 (4.5-10.0)
[2023-02-24 13:23] LABS: Alanine Aminotransferase 24 U/L (6-50); Albumin Level 4.3 g/dL (3.5-5.1); Alkaline Phosphatase 83 U/L (38-126); Anion Gap 8 mmol/L (8-16); Aspartate Amino Transferase 28 U/L (17-59); Bilirubin,Total 1.1 mg/dL (0.2-1.3); Blood Urea Nitrogen 24 mg/dL (9-20); Calcium 9.1 mg/dL (8.4-10.2); Carbon Dioxide 23 mmol/L (22-30); Chloride 99 mmol/L (98-107); Estimated CRCL calculation 68 ml/min; Estimated Glomerular Filt Rate > 60; Glucose 111 mg/dL (65-110); Lipase 158 U/L (23-300); Potassium 4.7 mmol/L (3.4-5.0); Sodium 130 mmol/L (137-145)
[2023-02-24 15:28] LABS: SARS-CoV-2 RNA PCR Negative (Negative)
--- NOTE | 2023-02-24 15:50 | ED.GENADULT ---
HPI - General Adult General Chief complaint: Headache Stated complaint: from with c/o SAMSON and nausea since Tuesday Time Seen by Provider: 02/24/23 14:39 Source: patient and family () Limitations: no limitations History of Present Illness HPI narrative: Patient is a 72-year-old male present to the emergency department complaining of headache. Patient notes that the headaches been present for the past 4 days and constant and overall unchanged, describes it as frontal, bilateral, dull, nonradiating, denies any history of headaches in the past. Patient denies history of aneurysms in the family. Patient denies anyone having similar symptoms to him. Patient notes that he tried a Tylenol without any relief and he also called his primary care physician yesterday who told him to take an Advil without any relief. Patient admits to associated fatigue over the same duration in addition to nausea with 1 episode of nonbloody nonbilious emesis yesterday in addition to a watery stool this morning. Patient denies chest pain, shortness of breath, cough, abdominal pain, rash, fever, vision changes, numbness, weakness, sore throat, rhinorrhea, blood clots, dysuria, urinary urgency, urinary frequency, hematuria. Patient denies dizziness or lightheadedness. Patient notes that he typically uses a cane to ambulate. Patient states that he had a fall on Tuesday while in the shower and when she landed on his right knee and has not been evaluated for this and has since noticed increased swelling in addition to redness in that region and overall his range of motion has decreased. Patient notes that he saw his orthopedic physician for his right knee on Tuesday the day prior to the fall at which time he did have some redness in the same region and was told that it was not infected and patient denies being on any antibiotics recently. Related Data Home Medications Medication Instructions Recorded Confirmed aspirin 81 mg tablet,delayed 81 mg PO DAILY 04/06/20 02/24/23 release cabergoline 0.5 mg tablet 0.5 mg PO 2XW 04/06/20 02/24/23 calcium citrate malate 250 4 tablet PO DAILY 04/06/20 02/24/23 mg-vitamin D3 2.5 mcg (100 unit) tablet cholecalciferol (vitamin D3) 50 50 mcg PO DAILY 09/20/20 08/10/23 mcg (2,000 unit) capsule (Vitamin D3) ferrous gluconate 236 mg (27 mg 236 mg PO DAILY 04/06/20 02/24/23 iron) tablet lisinopril 10 mg tablet 10 mg PO DAILY 04/06/20 02/24/23 mecobalamin (vitamin B12) 1,000 1,000 mcg sublingual DAILY 04/06/20 02/24/23 mcg disintegrating tablet,sublingual atorvastatin 40 mg tablet 80 mg PO DAILY 10/06/20 02/24/23 acetaminophen 650 mg 1,300 mg PO Q12H 10/26/21 02/24/23 tablet,extended release (Tylenol Arthritis Pain) ezetimibe 10 mg tablet (Zetia) 10 mg PO DAILY 10/26/21 02/24/23 levothyroxine 50 mcg tablet 50 mcg PO DAILY 10/26/21 02/24/23 mirabegron 50 mg tablet,extended 50 mg PO DAILY 10/26/21 02/24/23 release 24 hr (Myrbetriq) Allergies Allergy/AdvReac Type Severity Reaction Status Date / Time No Known Allergies Allergy Verified 02/24/23 12:49 [facility] Past Medical History Medical History Afib BPH (benign prostatic hyperplasia) CAD (coronary artery disease) CKD (chronic kidney disease) Colon cancer screening Depression History of ID (myocardial infarction) History of pituitary adenoma HLD (hyperlipidemia) HTN (hypertension) Obesity JULIANA (obstructive sleep apnea) Osteoarthritis SSS (sick sinus syndrome) Type 2 diabetes mellitus with proliferative diabetic retinopathy without macular edema, bilateral Surgical History Surgical History History of coronary artery bypass graft Total knee replacement status Family History Family History Other Family history of congenital heart disease Social History Social History (R
[2023-02-24] MEDS: KETOROLAC 15 MG/ML VIAL (*BKC) IV PUSH (16:01)
[2023-02-24 16:08] LABS: Appearance Urine Clear (Clear); Bacteria Urine None Seen /hpf; Bilirubin Urine Negative (Negative); Blood Urine Negative (Negative); Color Urine Dark Yellow (Yellow); Glucose Urine UA Negative (Negative); Ketones Urine 2+ mg/dL (Negative); Leukocyte Esterase Ur Negative LEU/UL (Negative); Mucus Urine Present /lpf; Need Manual Microscopic Reviewed; Nitrate Urine Negative (Negative); Protein Urine 1+ mg/dL (Negative); RBC Urine 0-2 /hpf (0-2); Specific Grav Ur 1.024 (1.001-1.035); Squamous Epithelial Cell Urine None seen /hpf (Few); WBC Urine 0-5 /hpf; pH Urine 5.5 (5.0-9.0)
[2023-02-24 16:24] LABS: Add Urine Microscopic? YES
[2023-02-24 16:40] LABS: INR 1.2; Prothrombin Time 15.7 Seconds (11.1-14.7)
[2023-02-24 16:41] LABS: Partial Thromboplastin Time 34.7 SECONDS (22.3-36.8)
[2023-02-24 16:54] LABS: CRP 19.6 mg/dL (<1.0)
[2023-02-24 16:57] LABS: Erythrocyte Sedimentation Rate 107 mm/hr (0-20)
[2023-02-24] MEDS: CEPHALEXIN 500 MG CAPSULE PO (18:54)
== END 2023-02-24 19:03 | disposition home or self-care (01) ==
PROVIDERS: Physician Assistant; Preventive Medicine Aerospace Medicine; Emergency Provider Student in an Organized Health Care Education/Training Program; PCP Family Medicine
DX: L03.115 Cellulitis of right lower limb (principal); R51.9 Headache, unspecified; R82.4 Acetonuria; Z20.822 Contact with and (suspected) exposure to COVID-19; I48.91 Unspecified atrial fibrillation; E11.22 Type 2 diabetes mellitus with diabetic chronic kidney disease; I12.9 Hypertensive chronic kidney disease with stage 1 through stage 4 chronic kidney disease, or unspecified chronic kidney disease; N18.9 Chronic kidney disease, unspecified; E11.3593 Type 2 diabetes mellitus with proliferative diabetic retinopathy without macular edema, bilateral; E78.5 Hyperlipidemia, unspecified; I25.2 Old myocardial infarction; N40.0 Benign prostatic hyperplasia without lower urinary tract symptoms; M19.90 Unspecified osteoarthritis, unspecified site; G47.33 Obstructive sleep apnea (adult) (pediatric); F32.A Depression, unspecified; Z95.1 Presence of aortocoronary bypass graft; Z96.651 Presence of right artificial knee joint; J32.9 Chronic sinusitis, unspecified; M70.41 Prepatellar bursitis, right knee; Z79.82 Long term (current) use of aspirin
CPT/HCPCS: 36415; 70450; 73564; 80053; 81001; 83690; 85025; 85610; 85652; 85730; 86140; 87040; 87147; 87181; 87186; 87635; 96374; 99284; A9270; J1885

== ENCOUNTER 2023-03-30 09:37 | Emergency (ER) | payer MEDICARE, SELFPAY ==
--- NOTE | ~2023-03-30 | XR_ITS ---
XR chest port-a-cath/central 03/30/2023 12:15 Indication: Mid line placement of portacatheter Procedure: AP portable chest Comparison: Comparison to multiple prior studies sequentially, with oldest reviewed study dated 10/06. Findings: Status post median sternotomy for CABG. There are multiple fractured sternal wires. Heart s ize normal. Right subclavian PICC line tip in the SVC superiorly. No focal air space disease, pulmona ry edema, pleural effusion or suspected pneumothorax. Impression: 1: No acute cardiopulmonary disease. Reviewed, dictated and finalized at location B. Impression: 1: No acute cardiopulmonary disease.
[2023-03-30 10:12] VITALS: BP 132/79; PULSE 91; RESP 18; TEMP 36.6; O2SAT 95
--- NOTE | 2023-03-30 10:55 | ED.GENADULT ---
HPI - General Adult General Chief complaint: Unspecified Stated complaint: PICC line came out Time Seen by Provider: 03/30/23 10:43 History of Present Illness HPI narrative: 72-year-old male presented the ED for evaluation after having his PICC line inadvertently dislodged. Patient states it got caught on his PJ short this morning. Patient has had a PICC line since 03/09 placed at [facility] for treatment for a septic arthritis of the right knee. Patient has been receiving cefoxitin. Patient is also on aspirin and Plavix. Patient denies any other pain or injury. Patient denies any chest pain or shortness of breath. Related Data Home Medications Medication Instructions Recorded Confirmed cabergoline 0.5 mg tablet 0.5 mg PO 2XW 04/06/20 03/10/23 calcium citrate malate 250 4 tablet PO DAILY 04/06/20 03/10/23 mg-vitamin D3 2.5 mcg (100 unit) tablet cholecalciferol (vitamin D3) 50 50 mcg PO DAILY 04/06/20 03/10/23 mcg (2,000 unit) capsule (Vitamin D3) ferrous gluconate 236 mg (27 mg 236 mg PO DAILY 04/06/20 03/10/23 iron) tablet lisinopril 10 mg tablet 10 mg PO DAILY 04/06/20 03/10/23 mecobalamin (vitamin B12) 1,000 1,000 mcg sublingual DAILY 04/06/20 03/10/23 mcg disintegrating tablet,sublingual atorvastatin 40 mg tablet 80 mg PO DAILY 10/06/20 03/10/23 acetaminophen 650 mg 1,300 mg PO Q12H 10/26/21 03/10/23 tablet,extended release (Tylenol Arthritis Pain) ezetimibe 10 mg tablet (Zetia) 10 mg PO DAILY 10/26/21 03/10/23 levothyroxine 50 mcg tablet 50 mcg PO DAILY 10/26/21 03/10/23 mirabegron 50 mg tablet,extended 50 mg PO DAILY 10/26/21 03/10/23 release 24 hr (Myrbetriq) Allergies Allergy/AdvReac Type Severity Reaction Status Date / Time No Known Allergies Allergy Verified 03/30/23 09:38 Review of Systems Review of Systems: All systems reviewed & are unremarkable except as noted in HPI and below [facility] Past Medical History Medical History (Updated 03/11/23 @ 09:28 by Navjot Khan MD) Afib BPH (benign prostatic hyperplasia) CAD (coronary artery disease) CKD (chronic kidney disease) Colon cancer screening Depression History of CVA (cerebrovascular accident) History of [place] (myocardial infarction) History of pituitary adenoma HLD (hyperlipidemia) HTN (hypertension) Obesity JULIANA (obstructive sleep apnea) Osteoarthritis SSS (sick sinus syndrome) Type 2 diabetes mellitus with proliferative diabetic retinopathy without macular edema, bilateral Surgical History Surgical History (Updated 03/30/23 @ 12:26 by Aba Mtz MD) History of coronary artery bypass graft Total knee replacement status Family History Family History Other Family history of congenital heart disease Social History Social History Smoking status: Never smoker Second hand tobacco smoke exposure: No Alcohol intake: never Substance use: never Substance use type: does not use Lack of Transportation: No Lack of Food: Never True Current Housing: I Have Housing Concerned About Future Housing: No Difficulty Paying Gas/Electric Bills: No Difficulty Paying for Meds: No Currently Unemployed: No Education: Associate Degree Difficulty w/ Childcare or Family Care: No Living arrangements: with family Occupation/Education: retired Gender identity (if verbalized by the patient): Male Sexual Orientation (if Verbalized by the Patient): Straight or Heterosexual Spiritual care concerns: No Exam Narrative: APPEARANCE: Well appearing, no pain, no distress, well-nourished. HEAD: normocephalic, atraumatic. EYES: PERRLA/EOMI, conjunctivae clear. NOSE: Normal no drainage NECK: Supple. No adenopathy, no masses. RESPIRATORY: Airway patent, respirations nonlabored. Clear to auscultation bilaterally, no rales, rhonchi, wheezing. CARDIOVASCULAR: Regular rate and rhythm withou
[2023-03-30] MEDS: LIDOCAINE HCL 1% LOCAL INJ 2 ML AMPUL 5 ML INFILTRATE (11:45)
== END 2023-03-30 12:36 | disposition home or self-care (01) ==
PROVIDERS: Emergency Provider Emergency Medicine; PCP Family Medicine
DX: Z45.2 Encounter for adjustment and management of vascular access device (principal); M00.9 Pyogenic arthritis, unspecified; I48.91 Unspecified atrial fibrillation; I25.10 Atherosclerotic heart disease of native coronary artery without angina pectoris; I12.9 Hypertensive chronic kidney disease with stage 1 through stage 4 chronic kidney disease, or unspecified chronic kidney disease; E11.22 Type 2 diabetes mellitus with diabetic chronic kidney disease; N18.9 Chronic kidney disease, unspecified; E11.3513 Type 2 diabetes mellitus with proliferative diabetic retinopathy with macular edema, bilateral; I25.2 Old myocardial infarction; N40.0 Benign prostatic hyperplasia without lower urinary tract symptoms; E78.5 Hyperlipidemia, unspecified; G47.33 Obstructive sleep apnea (adult) (pediatric); M19.90 Unspecified osteoarthritis, unspecified site; F32.A Depression, unspecified; Z95.1 Presence of aortocoronary bypass graft; Z96.659 Presence of unspecified artificial knee joint; Z86.73 Personal history of transient ischemic attack (TIA), and cerebral infarction without residual deficits; Z79.02 Long term (current) use of antithrombotics/antiplatelets; Z79.82 Long term (current) use of aspirin
CPT/HCPCS: 36569; 99283

== ENCOUNTER 2023-05-23 15:04 | Emergency (ER) | payer MEDICARE, SELFPAY ==
[2023-05-23 15:10] VITALS: BP 117/70; PULSE 98; RESP 16; TEMP 35.8; O2SAT 96
--- NOTE | 2023-05-23 15:30 | ED.URI ---
HPI - URI/Sore Throat General Chief Complaint: Upper Respiratory Infection Stated Complaint: Cold symptoms;Nausea Time Seen by Provider: 05/23/23 15:30 Source: patient, RN notes reviewed and old records reviewed Mode of arrival: ambulatory Limitations: no limitations History of Present Illness HPI Narrative: 73-year-old male presents to the [facility] with concerns for COVID. States that he test positive out at home test which was . Patient states he had a headache yesterday. Vomited 1 time yesterday. Had diarrhea 1 time today. States he does not feel bad states that he still eating and drinking normally. Denies any symptoms on exam. Patient states ?I really do not feel that bad. ? is positive for covid Related Data Home Medications Medication Instructions Recorded Confirmed cabergoline 0.5 mg tablet 0.5 mg PO 2XW 04/06/20 05/23/23 calcium citrate malate 250 4 tablet PO DAILY 04/06/20 05/23/23 mg-vitamin D3 2.5 mcg (100 unit) tablet cholecalciferol (vitamin D3) 50 50 mcg PO DAILY 04/06/20 05/23/23 mcg (2,000 unit) capsule (Vitamin D3) ferrous gluconate 236 mg (27 mg 236 mg PO DAILY 04/06/20 05/23/23 iron) tablet lisinopril 10 mg tablet 10 mg PO DAILY 04/06/20 05/23/23 mecobalamin (vitamin B12) 1,000 1,000 mcg sublingual DAILY 04/06/20 05/23/23 mcg disintegrating tablet,sublingual atorvastatin 40 mg tablet 80 mg PO DAILY 10/06/20 05/23/23 acetaminophen 650 mg 1,300 mg PO Q12H 10/26/21 05/23/23 tablet,extended release (Tylenol Arthritis Pain) ezetimibe 10 mg tablet (Zetia) 10 mg PO DAILY 10/26/21 05/23/23 levothyroxine 50 mcg tablet 50 mcg PO DAILY 10/26/21 05/23/23 mirabegron 50 mg tablet,extended 50 mg PO DAILY 10/26/21 05/23/23 release 24 hr (Myrbetriq) cefadroxil 500 mg capsule 500 mg PO DAILY 05/23/23 05/23/23 Allergies Allergy/AdvReac Type Severity Reaction Status Date / Time No Known Allergies Allergy Verified 05/23/23 15:16 Review of Systems Review of Systems: All systems reviewed & are unremarkable except as noted in HPI and below Constitutional: Constitutional: Reports as per HPI, Reports no additional constitutional complaints and Reports headache(s) Eyes: Eyes: Reports no additional eye complaints ENT: Reports system reviewed and no additional complaints, except as documented Cardiovascular: Cardiovascular: Reports no additional cardiovascular complaints, Denies chest pain and Denies dyspnea Respiratory: Respiratory: Reports no additional respiratory complaints, Denies chest congestion, Denies cough and Denies dyspnea Gastrointestinal: Gastrointestinal: Reports as per HPI, Denies abdominal pain, Reports diarrhea, Reports nausea and Reports vomiting Musculoskeletal: Musculoskeletal: Reports no additional musculoskeletal complaints Integumentary/Breasts: Skin/Breast: Reports system reviewed and no additional complaints, except as docu Neurologic: Reports system reviewed and no additional complaints, except as documented Psychiatric: Psychiatric: Reports no additional psychiatric complaints Allergic/Immunologic: Allergic/Immunologic: Reports no additional allergic/immunologic complaints PMFSH Past Medical History Medical History Afib BPH (benign prostatic hyperplasia) CAD (coronary artery disease) CKD (chronic kidney disease) Colon cancer screening Depression History of CVA (cerebrovascular accident) History of [place] (myocardial infarction) History of pituitary adenoma HLD (hyperlipidemia) HTN (hypertension) Obesity JULIANA (obstructive sleep apnea) Osteoarthritis SSS (sick sinus syndrome) Type 2 diabetes mellitus with proliferative diabetic retinopathy without macular edema, bilateral Surgical History Surgical History History of coronary artery bypass graft Total knee replacement status Family History Family History (Reviewed 05/23/23 @ 1
== END 2023-05-23 15:50 | disposition home or self-care (01) ==
PROVIDERS: Emergency Provider Nurse Practitioner; PCP Family Medicine
DX: U07.1 COVID-19 (principal); I48.91 Unspecified atrial fibrillation; N40.0 Benign prostatic hyperplasia without lower urinary tract symptoms; I25.10 Atherosclerotic heart disease of native coronary artery without angina pectoris; I13.10 Hypertensive heart and chronic kidney disease without heart failure, with stage 1 through stage 4 chronic kidney disease, or unspecified chronic kidney disease; E11.22 Type 2 diabetes mellitus with diabetic chronic kidney disease; N18.9 Chronic kidney disease, unspecified; Z86.73 Personal history of transient ischemic attack (TIA), and cerebral infarction without residual deficits; I25.2 Old myocardial infarction; E78.5 Hyperlipidemia, unspecified; M19.90 Unspecified osteoarthritis, unspecified site; I49.5 Sick sinus syndrome; E11.3513 Type 2 diabetes mellitus with proliferative diabetic retinopathy with macular edema, bilateral; Z95.1 Presence of aortocoronary bypass graft; F32.A Depression, unspecified
CPT/HCPCS: 87426; 99213; C9803; G0463

== ENCOUNTER 2024-05-20 15:20 | Emergency (ER) | payer MEDICARE, SELFPAY ==
--- NOTE | 2024-05-20 15:22 | ED.GENADULT ---
HPI - General Adult General Chief complaint: Chest Pain Stated complaint: Chest Wall Pain Time Seen by Provider: 05/20/24 15:22 Source: patient Mode of arrival: ambulatory Limitations: no limitations History of Present Illness HPI narrative: 74-year-old male patient presents to the [facility] today with chest pain that started today. Patient states he was on the phone talking to a woman about his prescription. Patient states that the 1 most often some broken Belarusian and he was having trouble understanding her and was getting really frustrated and angry when the chest pain started. Patient states this happened about 11:00 a.m. this morning. Patient states that only has chest pain when he takes a breath in. Patient denies any headaches, denies lightheadedness dizziness. Denies shortness of breath. Denies radiation of chest pain anywhere else on the body. Denies abdominal pain, nausea vomiting or diarrhea. Denies any fevers. Patient does see a magnetic resonance imaging coordinator. Related Data Home Medications Medication Instructions Recorded Confirmed calcium 250 mg (as citrate 4 tablet PO DAILY 04/06/20 05/04/24 malate)-vit D3 2.5 mcg (100 unit) tablet cholecalciferol (vitamin D3) 50 50 mcg PO DAILY 04/06/20 05/04/24 mcg (2,000 unit) capsule (Vitamin D3) ferrous gluconate 236 mg (27 mg 236 mg PO DAILY 04/06/20 05/04/24 iron) tablet lisinopril 10 mg tablet 10 mg PO DAILY 04/06/20 05/04/24 mecobalamin (vitamin B12) 1,000 1,000 mcg sublingual DAILY 04/06/20 05/04/24 mcg disintegrating tablet,sublingual atorvastatin 40 mg tablet 80 mg PO DAILY 10/06/20 05/04/24 acetaminophen 650 mg 1,300 mg PO Q12H 10/26/21 05/04/24 tablet,extended release (Tylenol Arthritis Pain) ezetimibe 10 mg tablet (Zetia) 10 mg PO DAILY 10/26/21 05/04/24 levothyroxine 50 mcg tablet 50 mcg PO DAILY 10/26/21 05/04/24 mirabegron 50 mg tablet,extended 50 mg PO DAILY 10/26/21 05/04/24 release 24 hr (Myrbetriq) cabergoline 0.5 mg tablet 0.5 mg PO DAILY 03/29/24 05/04/24 cyclobenzaprine 5 mg tablet 5 mg PO DAILY PRN muscle spasm 03/29/24 05/04/24 Allergies Allergy/AdvReac Type Severity Reaction Status Date / Time No Known Allergies Allergy Verified 05/20/24 15:39 Review of Systems Review of Systems: CONSTITUTIONAL: Denies fever, chills, or sweats. EYES: Denies visual changes, redness, or discharge. ENT: Denies rhinorrhea, congestion, sore throat, or otalgia. CARDIOVASCULAR: Positive chest pain, denies palpitations, or edema. RESPIRATORY: Denies cough or dyspnea. GASTROINTESTINAL: Denies abdominal pain, nausea, vomiting, or diarrhea. GENITOURINARY: Denies dysuria or hematuria. SKIN: Denies rash or itching. MUSCULOSKELETAL: Denies back pain, joint pain, or myalgia. NEUROLOGIC: Denies headache, numbness, or weakness. PSYCHIATRIC: Denies anxiety or depression. [facility] Past Medical History Medical History Afib BPH (benign prostatic hyperplasia) CAD (coronary artery disease) CKD (chronic kidney disease) Colon cancer screening Depression History of CVA (cerebrovascular accident) History of VA (myocardial infarction) History of pituitary adenoma HLD (hyperlipidemia) HTN (hypertension) Obesity JULIANA (obstructive sleep apnea) Osteoarthritis Sensorineural hearing loss of combined sites, bilateral SSS (sick sinus syndrome) Type 2 diabetes mellitus with proliferative diabetic retinopathy without macular edema, bilateral Surgical History Surgical History History of coronary artery bypass graft Total knee replacement status Family History Family History Other Family history of congenital heart disease Social History Social History Social History: Caffeine-soda Smoking status: Never smoker Second hand tobacco smoke exposure: No Alcohol intake: never Substance use: never Substance use type: does not use Do You Feel Safe in your Home?: Yes Lack of Transportation: No Lack of Food: Never True Current Housing: I Have Housing Concerned About Future Housing: No Difficulty Paying Gas/Electric Bills: No Difficulty Paying for Meds: No Currently Unemployed: No Education: Associate Degree Difficulty w/ Childcare or Family Care: No Living arrangements: with family Occupation/Education: retired Gender identity (if verbalized by the patient): Male Sexual Orientation (if Verbalized by the Patient): Straight or Heterosexual Spiritual care concerns: No Comments At the time of my signature I agree with nursing past medical history, surgical, social, and family history. There is no relevant family history pertinent to the presenting complaint. Exam Narrative: GENERAL: Well-appearing, well-nourished, and in no acute distress. HEAD: Normocephalic, atraumatic. EYES: PERRLA and EOMI. ENT: Nares clear, no rhinorrhea or epistaxis. Mucous membranes moist. NECK: Supple. No lymphadenopathy CHEST: Clear to auscultation. No respiratory distress. HEART: Regular rate and rhythm. No murmur heard. Normal peripheral pulses. ABDOMEN: Soft, nontender, nondistended, normal active bowel sounds. EXTREMITIES: Normal range of motion. No edema. SKIN: Warm, dry, no rash. NEURO: No focal deficits. Alert and oriented x3. Course Course Level of Care: Express Care Visit Vital Signs Vital signs: Vital Signs Oxygen Delivery Room Air 05/20/24 15:40 Temperature 35.9 C L 05/20/24 15:45 Pulse Rate 62 05/20/24 15:45 Respiratory Rate 16 05/20/24 15:45 Blood Pressure 161/79 H 05/20/24 15:45 Pulse Oximetry 98 05/20/24 15:45 Oxygen Delivery Room Air 05/20/24 15:40 Vital signs reviewed. The patient has been informed that they may have pre-hypertension or Hypertension based on a BP reading in the department. I recommend that the patient call the primary care provider listed on their discharge instructions or a physician of their choice this week to arrange follow up for further evaluation of possible pre-hypertension or Hypertension Medical Decision Making MDM Narrative Medical decision making narrative: discussed with patient that his EKG is unchanged from his previous EKG however the only way to tell if he has something going on with his heart is to do a full workup in the emergency department that includes blood work. Discussed with patient that I do not see any acute issues right now however I cannot rule out cardiac issues completely without full workup. Patient is aware of this. Patient states he would like to go home to see if his symptoms worsen and if they do he would go to the ER otherwise he will call his magnetic resonance imaging coordinator tomorrow. Discussed with patient that at this time he is stable I think this is appropriate at this time but it is very important that if anything changes or if any symptoms worsen he goes to the hospital right away. Patient is in agreement with this. Differential Diagnosis Differential Diagnosis: Differential diagnosis: STEMI/ACS, AAA, PE, spontaneous pneumothorax, cardiac tamponade, esophageal rupture, pneumonia, GERD, muscle-skeletal pain or trauma, endocarditis, cocaine-related ischemia, pericarditis, URI, bronchitis. Vital Signs Vital Signs: Vital Signs Oxygen Delivery Room Air 05/20/24 15:40 Temperature 35.9 C L 05/20/24 15:45 Pulse Rate 62 05/20/24 15:45 Respiratory Rate 16 05/20/24 15:45 Blood Pressure 161/79 H 05/20/24 15:45 Pulse Oximetry 98 05/20/24 15:45 Oxygen Delivery Room Air 05/20/24 15:40 Vital signs reviewed. The patient has been informed that they may have pre-hypertension or Hypertension based on a BP reading in the department. I recommend that the patient call the primary care provider listed on their discharge instructions or a physician of their choice this week to arrange follow up for further evaluation of possible pre-hypertension or Hypertension ECG Data EKG #1: Interpretation: sinus bradycardia. Right bundle branch block. 120+ MS QRS duration, upright V1, 40+ MS S in I/aVL/V4/V5/V6. abnormal ECG. Unconfirmed report. Vent rate: 59 MT interval: 173 QRS duration 153 QT/ QTC: 463/462 P-R- T axis: -58, 64, 30 EKG Interpretation: bradycardia Critical Care Time Critical Care Time Critical Care Time: No Discharge Plan Discharge Clinical Impression: Nonspecific chest pain, Anxiety Patient Disposition: Home, Self-Care Condition: Stable Instructions: Antibiotic Form, Chest Wall Pain (ED) Additional Instructions: ECG was unchanged from previous 1 at this time. If symptoms continue or worsen, any worsening chest pain, sweating, nausea, shortness of breath or any other symptoms please report to the emergency department right away for full workup. Please call your magnetic resonance imaging coordinator tomorrow and let them know about your symptoms today to see if they want to see you for further workup. Prescriptions: No Action atorvastatin 40 mg tablet 80 mg PO DAILY cyclobenzaprine 5 mg tablet 5 mg PO DAILY PRN (Reason: muscle spasm) ezetimibe [Zetia] 10 mg tablet 10 mg PO DAILY Myrbetriq 50 mg tablet extended release 24 hr 50 mg PO DAILY acetaminophen [Tylenol Arthritis Pain] 650 mg tablet extended release 1,300 mg PO Q12H levothyroxine 50 mcg tablet 50 mcg PO DAILY tramadol 50 mg tablet 50 mg PO Q6H PRN (Reason: severe pain (scale score 7-10)) Qty: 14 0RF lisinopril 10 mg tablet 10 mg PO DAILY calcium citrate malate-vit D3 250-100 mg-unit Tablet 4 tablet PO DAILY cholecalciferol (vitamin D3) [Vitamin D3] 50 mcg (2,000 unit) Capsule 50 mcg PO DAILY ferrous gluconate 236 mg (27 mg iron) Tablet 236 mg PO DAILY mecobalamin (vitamin B12) 1,000 mcg Tablet,Disintegrating 1,000 mcg SUBLINGUAL DAILY cabergoline 0.5 mg tablet 0.5 mg PO DAILY Humulin R Regular U-100 Insuln 100 unit/mL solution 12 unit SUB-Q BID Qty: 10 0RF bumetanide 0.5 mg tablet 0.25 mg PO DAILY Qty: 45 3RF isosorbide mononitrate 30 mg tablet extended release 24 hr 30 mg PO DAILY Qty: 90 2RF bupropion HCl [Wellbutrin XL] 300 mg tablet extended release 24 hr 300 mg PO QAM Qty: 90 2RF sertraline 100 mg tablet See Rx Instructions .ROUTE .COMPLEX Qty: 135 2RF Dose Instruction: TAKE 1 AND 1/2 TABLETS BY MOUTH DAILY Rx Instructions: TAKE 1 AND 1/2 TABLETS BY MOUTH DAILY clopidogrel 75 mg tablet 75 mg PO DAILY Qty: 90 2RF tamsulosin 0.4 mg capsule 0.4 mg PO DAILY Qty: 90 1RF Rx Instructions: TAKE 1 CAPSULE BY MOUTH DAILY potassium chloride 20 mEq tablet extended release 40 meq PO DAILY Qty: 180 2RF Follow-up/Referrals: Navjot Khan MD [Primary Care Provider] - Time of Disposition: 15:53
--- NOTE | 2024-05-20 15:26 | ECG_ITS ---
Test Date: 2024-05-20 15:37:39 Measurements Intervals Corinna Rate: 59 P: -58 GA: 173 QRS: 64 QRSD: 153 T: 30 QT: 463 QTc: 461 Interpretive Statements SINUS BRADYCARDIA RIGHT BUNDLE BRANCH BLOCK CONSIDER INFERIOR INFARCT, AGE INDETERMINATE ABNORMAL ECG No previous ECG available for comparison Electronically Signed On 05-20-2024 16:40:56 LICENSED REACTOR OPERATOR by Dick Carlton D.O.
[2024-05-20 15:45] VITALS: BP 161/79; PULSE 62; RESP 16; TEMP 35.9; O2SAT 98
--- NOTE | 2024-05-20 15:52 | PC.NURSE ---
FORENSIC MATERIALS ENGINEER at bedside discussing plan of care. Per FORENSIC MATERIALS ENGINEER, EKG appears unchanged from previous test in 2020, however she informed Pt that she cannot rule out a cardiac event at this time since we are unable to obtain labs. Pt states that he feels fine currently and does not wish to go to ER at this time. Pt states that he is comfortable going home and if symptoms worsen he will go to ER for further evaluation. Otherwise Pt will follow up with his site inspector tomorrow.
== END 2024-05-20 16:20 | disposition home or self-care (01) ==
PROVIDERS: Emergency Provider Nurse Practitioner Family; PCP Family Medicine
DX: R07.9 Chest pain, unspecified (principal); F41.9 Anxiety disorder, unspecified; I48.91 Unspecified atrial fibrillation; N40.0 Benign prostatic hyperplasia without lower urinary tract symptoms; I25.10 Atherosclerotic heart disease of native coronary artery without angina pectoris; I12.9 Hypertensive chronic kidney disease with stage 1 through stage 4 chronic kidney disease, or unspecified chronic kidney disease; E11.22 Type 2 diabetes mellitus with diabetic chronic kidney disease; N18.9 Chronic kidney disease, unspecified; Z86.73 Personal history of transient ischemic attack (TIA), and cerebral infarction without residual deficits; I25.2 Old myocardial infarction; E78.5 Hyperlipidemia, unspecified; M19.90 Unspecified osteoarthritis, unspecified site; E66.9 Obesity, unspecified; Z68.41 Body mass index [BMI] 40.0-44.9, adult; Z95.1 Presence of aortocoronary bypass graft
CPT/HCPCS: 93005; 99213; G0463

== ENCOUNTER 2024-07-13 13:44 | Emergency (ER) | payer MEDICARE, SELFPAY ==
[2024-07-13 14:29] VITALS: BP 94/63; PULSE 98; RESP 22; TEMP 36.6; O2SAT 95
--- NOTE | 2024-07-13 15:49 | ED.URI ---
HPI - URI/Sore Throat General Chief Complaint: Upper Respiratory Infection Stated Complaint: Congestion/Body aches Time Seen by Provider: 07/13/24 16:00 Source: patient, RN notes reviewed and old records reviewed Mode of arrival: ambulatory Limitations: no limitations History of Present Illness HPI Narrative: Pleasant 74 year old male presents to express care with complaints of 2 day history of nausea and vomiting general malaise, headache and feeling poorly with some fevers. Patient reports that he has been sweaty today he thinks his fevers have broken, did drink a cup of water in clinic and had no complaints of nausea at that time.Patient reports that he has a hacking cough and he does feel a little short of breath with exertion.Patient reports that he routinely takes Tylenol daily for his arthritis BID. MD elicited complaint: fever and other (nauea and vomiting) Onset (ago): day(s) (2) Severity: moderate Description of mucous: clear Able to tolerate fluids by mouth: Yes Treatments prior to arrival: acetaminophen Related Data Home Medications ?Medication ?Instructions ?Recorded ?Confirmed ?Last Taken ?Type calcium 250 mg (as citrate 4 tablet PO DAILY 04/06/20 05/04/24 02/02/21 History malate)-vit D3 2.5 mcg (100 unit) tablet cholecalciferol (vitamin D3) 50 50 mcg PO DAILY 04/06/20 05/04/24 02/02/21 History mcg (2,000 unit) capsule (Vitamin D3) ferrous gluconate 236 mg (27 mg 236 mg PO DAILY 04/06/20 05/04/24 01/29/21 History iron) tablet lisinopril 10 mg tablet 10 mg PO DAILY 04/06/20 05/04/24 02/02/21 History mecobalamin (vitamin B12) 1,000 1,000 mcg sublingual DAILY 04/06/20 05/04/24 02/02/21 History mcg disintegrating tablet,sublingual atorvastatin 40 mg tablet 80 mg PO DAILY 10/06/20 05/04/24 Unknown History acetaminophen 650 mg 1,300 mg PO Q12H 10/26/21 05/04/24 Unknown History tablet,extended release (Tylenol Arthritis Pain) ezetimibe 10 mg tablet (Zetia) 10 mg PO DAILY 10/26/21 05/04/24 Unknown History levothyroxine 50 mcg tablet 50 mcg PO DAILY 10/26/21 05/04/24 Unknown History mirabegron 50 mg tablet,extended 50 mg PO DAILY 10/26/21 05/04/24 Unknown History release 24 hr (Myrbetriq) cabergoline 0.5 mg tablet 0.5 mg PO DAILY 03/29/24 05/04/24 Unknown History cyclobenzaprine 5 mg tablet 5 mg PO DAILY PRN muscle spasm 03/29/24 05/04/24 Unknown History Allergies Allergy/AdvReac Type Severity Reaction Status Date / Time No Known Allergies Allergy Verified 07/13/24 14:21 Review of Systems Review of Systems: CONSTITUTIONAL: Reports malaise, chills, sweats, or fever. EYES: Denies visual changes, redness, or discharge. ENT: Reports rhinorrhea, congestion,no sinus pain,no otalgia and no sore throat. CARDIOVASCULAR: Denies chest pain, palpitations, or edema. RESPIRATORY: Reports dry hacking cough.? Reports some AHUJA GASTROINTESTINAL: Denies abdominal pain,positive for nausea, vomiting, no diarrhea SKIN: Denies rash or itching. MUSCULOSKELETAL: Reports myalgia. NEUROLOGIC: Reports headache. All systems reviewed & are unremarkable except as noted in HPI and below PMFSH Past Medical History Medical History History of CVA (cerebrovascular accident) Sensorineural hearing loss of combined sites, bilateral Obesity Colon cancer screening Afib Depression Osteoarthritis JULIANA (obstructive sleep apnea) History of pituitary adenoma SSS (sick sinus syndrome) History of MD (myocardial infarction) CAD (coronary artery disease) CKD (chronic kidney disease) HLD (hyperlipidemia) HTN (hypertension) BPH (benign prostatic hyperplasia) Type 2 diabetes mellitus with proliferative diabetic retinopathy without macular edema, bilateral Surgical History Surgical History (Updated 07/15/24 @ 20:45 by Hiral Randall NP) History of tonsillectomy Total knee replacement status History of coronary artery bypass graft Family History Family History Other Family history of congenital heart disease Social History Social History Social History: Caffeine-soda Smoking status: Never smoker Second hand tobacco smoke exposure: No Alcohol intake: never Substance use: never Substance use type: does not use Do You Feel Safe in your Home?: Yes Lack of Transportation: No Lack of Food: Never True Current Housing: I Have Housing Concerned About Future Housing: No Difficulty Paying Gas/Electric Bills: No Difficulty Paying for Meds: No Currently Unemployed: No Education: Associate Degree Difficulty w/ Childcare or Family Care: No Living arrangements: with family Occupation/Education: retired Gender identity (if verbalized by the patient): Male Sexual Orientation (if Verbalized by the Patient): Straight or Heterosexual Spiritual care concerns: No Comments At time of signature, agree with nursing past medical, surgical, social and family history. There is no relevant family history pertinent to the presenting complaint Exam Narrative: GENERAL: Chronic ill-appearing, well-nourished, obese and in no acute distress. HEAD: Normocephalic EYES: PERRLA, conjunctivae clear ENT: Nares clear, turbinates edematous and erythematous, clear discharge. Mucous membranes moist. TM pearly torres with dull light reflex bilaterally; no tragal tenderness. Oropharynx erythematous without lesions. Tonsils not enlarged and without exudate, no drooling, no hoarseness, no trismus, uvula midline. NECK: Supple. No lymphadenopathy CHEST: Clear to auscultation, breath sounds equal. No wheezing, rhonchi, rales, or stridor. No respiratory distress, speaks in full sentences.hacking cough SAO2 95% on room air HEART: Regular rate and rhythm. No murmur heard. SKIN: Warm, dry, no rash. NEURO: Alert and oriented x3. PSYCH: Normal mood and affect Course Course Emergency Course: Patient is aware of diagnosis, understands and agrees to treatment plan.? Anticipatory guidance given.? Patient agrees to follow-up as directed and is aware of reasons to seek care at the emergency department. Portions of this record may have been created with voice recognition software Level of Care: Express Care Visit Vital Signs Vital signs: Vital Signs Temperature 36.6 C 07/13/24 14:29 Pulse Rate 98 07/13/24 14:29 Respiratory Rate 22 H 07/13/24 14:29 Blood Pressure 94/63 L 07/13/24 14:29 Pulse Oximetry 95 07/13/24 14:29 Temperature 36.6 C 07/13/24 14:29 Pulse Rate 98 07/13/24 14:29 Respiratory Rate 22 H 07/13/24 14:29 Blood Pressure 94/63 L 07/13/24 14:29 Pulse Oximetry 95 07/13/24 14:29 Reviewed MDM - URI/Sore Throat MDM Narrative Medical decision making narrative: Differential diagnosis considered: Babcock virus, strep pharyngitis, allergic rhinitis, upper respiratory tract infection, sinusitis, rhinosinusitis, nasopharyngitis. viral pharyngitis, otitis media, otitis externa, pneumonia, bronchitis, viral cough syndrome, viral syndrome, and influenza.? Exam findings show no acute concerns or changes; patient is non-toxic appearing and is in no distress.? Patient is appropriate for outpatient treatment and follow-up. Differential Diagnosis Differential diagnosis: Likely upper respiratory infection, sinusitis, viral infection, influenza and other (COVID, nausea and vomiting) Medical Records Attestation: I reviewed the patient's medical records. Lab Data Attestation: I reviewed the patient's lab results. Lab results narrative: Influenza A positive, Influenza B negative, COVID antigen negative Labs: Lab Results 07/13/24 Range/Units 14:23 POC Influenza A Ag Positive (Negative) POC Influenza B Ag Negative (Negative) POC SARS CoV-2 Ag Negative (Negative) reviewed Critical Care Time Critical Care Time Critical Care Time: No Discharge Plan Discharge Clinical Impression: Influenza A Patient Disposition: Home, Self-Care Condition: Stable Instructions: Influenza (ED) Additional Instructions: Increase fluids especially juices and water [id number] cough and cold medicine of your choice for your symptoms Mucinex or plain Robitussin Tylenol for any pain or fever Zyrtec Claritin or Gretchen daily with Coricidin decongestant Zofran for any nausea and vomiting heat to the face 20-30 minutes 4-6 times a day for pain Salt water gargles, throat lozenges or throat sprays as desired If your symptoms persist, change or worsen significantly before you can contact your personal physician then please, without delay, go to the emergency department for further evaluation. Follow-up with PCP in 7-10 days or sooner if needed must be fever free for 24 hours without use of Tylenol or ibuprofen before he could be at around others, average length of symptoms is usually 5 days Patient Language: Belarusian Prescriptions: New ondansetron 4 mg tablet,disintegrating 4 mg PO Q6H PRN (Reason: nausea and vomiting) Qty: 20 0RF No Action atorvastatin 40 mg tablet 80 mg PO DAILY cyclobenzaprine 5 mg tablet 5 mg PO DAILY PRN (Reason: muscle spasm) ezetimibe [Zetia] 10 mg tablet 10 mg PO DAILY Myrbetriq 50 mg tablet extended release 24 hr 50 mg PO DAILY acetaminophen [Tylenol Arthritis Pain] 650 mg tablet extended release 1,300 mg PO Q12H levothyroxine 50 mcg tablet 50 mcg PO DAILY tramadol 50 mg tablet 50 mg PO Q6H PRN (Reason: severe pain (scale score 7-10)) Qty: 14 0RF lisinopril 10 mg tablet 10 mg PO DAILY calcium citrate malate-vit D3 250-100 mg-unit Tablet 4 tablet PO DAILY cholecalciferol (vitamin D3) [Vitamin D3] 50 mcg (2,000 unit) Capsule 50 mcg PO DAILY ferrous gluconate 236 mg (27 mg iron) Tablet 236 mg PO DAILY mecobalamin (vitamin B12) 1,000 mcg Tablet,Disintegrating 1,000 mcg SUBLINGUAL DAILY cabergoline 0.5 mg tablet 0.5 mg PO DAILY Humulin R Regular U-100 Insuln 100 unit/mL solution 12 unit SUB-Q BID Qty: 10 0RF bumetanide 0.5 mg tablet 0.25 mg PO DAILY Qty: 45 3RF isosorbide mononitrate 30 mg tablet extended release 24 hr 30 mg PO DAILY Qty: 90 2RF bupropion HCl [Wellbutrin XL] 300 mg tablet extended release 24 hr 300 mg PO QAM Qty: 90 2RF sertraline 100 mg tablet See Rx Instructions .ROUTE .COMPLEX Qty: 135 2RF Dose Instruction: TAKE 1 AND 1/2 TABLETS BY MOUTH DAILY Rx Instructions: TAKE 1 AND 1/2 TABLETS BY MOUTH DAILY clopidogrel 75 mg tablet 75 mg PO DAILY Qty: 90 2RF tamsulosin 0.4 mg capsule 0.4 mg PO DAILY Qty: 90 1RF Rx Instructions: TAKE 1 CAPSULE BY MOUTH DAILY potassium chloride 20 mEq tablet extended release 40 meq PO DAILY Qty: 180 2RF Follow-up/Referrals: PHYSICIAN,PSYCHOTHERAPIST SOCIAL WORKER [Primary Care Provider] - Time of Disposition: 16:17 Quality [place] Coma Scale Eyes: Open Verbal: Oriented and Alert Motor: Follows Commands [place] Coma Total Score: 15
[2024-07-13 16:35] LABS: EDCOVIDSCREEN Negative (Negative); EDINFLUASCREEN Positive (Negative); EDINFLUBSCREEN Negative (Negative)
== END 2024-07-13 16:23 | disposition home or self-care (01) ==
PROVIDERS: Emergency Provider Registered Nurse
DX: J10.1 Influenza due to other identified influenza virus with other respiratory manifestations (principal); I48.91 Unspecified atrial fibrillation; I25.10 Atherosclerotic heart disease of native coronary artery without angina pectoris; I12.9 Hypertensive chronic kidney disease with stage 1 through stage 4 chronic kidney disease, or unspecified chronic kidney disease; E11.22 Type 2 diabetes mellitus with diabetic chronic kidney disease; N18.9 Chronic kidney disease, unspecified; Z86.73 Personal history of transient ischemic attack (TIA), and cerebral infarction without residual deficits; Z20.822 Contact with and (suspected) exposure to COVID-19
CPT/HCPCS: 87426; 87804; 99213; G0463

== ENCOUNTER 2025-03-22 12:37 | Outpatient (CLI) | payer MEDICARE, SELFPAY | END 2025-03-22 12:38 | disposition home or self-care (01) | LOC: ANHAUDIO 12:37 | PROVIDERS: PCP Family Medicine; Visit Provider Otolaryngology | DX: H90.3 Sensorineural hearing loss, bilateral (principal); Z97.4 Presence of external hearing-aid | CPT/HCPCS: 92557; 92567; 99199 ==